=== PATIENT | female | born 1985 | race Caucasian/White ===

== ENCOUNTER 2020-06-24 09:54 | Outpatient (REF) | payer OTHER, SELFPAY ==
[2020-06-25 09:47] LABS: BV Int Neg Control Negative (Negative); BV Int Pos Control Positive (Positive)
[2020-06-25 19:02] LABS: C. trachomatis RNA TMA NOT DETECTED (NOT DETECTED); N. gonorrhoeae RNA TMA NOT DETECTED (NOT DETECTED)
== END 2020-06-24 09:55 | disposition home or self-care (01) ==
LOC: HO.LAB 09:54
PROVIDERS: PCP Internal Medicine; Visit Provider Advanced Practice Midwife
DX: N92.6 Irregular menstruation, unspecified (principal); Z20.2 Contact with and (suspected) exposure to infections with a predominantly sexual mode of transmission
CPT/HCPCS: 36415; 81025; 87480; 87491; 87510; 87591; 87660; 99212

== ENCOUNTER 2020-07-08 10:43 | Outpatient (REF) | payer OTHER, SELFPAY ==
--- NOTE | ~2020-07-08 | US_ITS ---
EXAMINATION: PELVIC ULTRASOUND CLINICAL INFORMATION: Pain COMPARISON: Previous exam October 2010 TECHNIQUE: Transabdominal and transvaginal pelvic ultrasound was performed. Transvaginal exam was performed for better visualization of the uterus and ovaries. FINDINGS: The uterus is anteverted and measures 11 x 5 x 6.7 cm in dimension. No focal uterine lesion is seen. There is an IUD in the uterus in satisfactory position. The endometrium does not appear thickened. The ovaries are normal-appearing. The right ovary measures 2.7 x 3.7 x 1.4 cm and the left ovary measures 3.4 x 2.6 x 2.2 cm. There is no fluid in the pelvis. US/US transvaginal IMPRESSION: IUD in the uterus in satisfactory position. Otherwise unremarkable exam.
--- NOTE | ~2020-07-08 | US_ITS ---
EXAMINATION: PELVIC ULTRASOUND CLINICAL INFORMATION: Pain COMPARISON: Previous exam October 2010 TECHNIQUE: Transabdominal and transvaginal pelvic ultrasound was performed. Transvaginal exam was performed for better visualization of the uterus and ovaries. FINDINGS: The uterus is anteverted and measures 11 x 5 x 6.7 cm in dimension. No focal uterine lesion is seen. There is an IUD in the uterus in satisfactory position. The endometrium does not appear thickened. The ovaries are normal-appearing. The right ovary measures 2.7 x 3.7 x 1.4 cm and the left ovary measures 3.4 x 2.6 x 2.2 cm. There is no fluid in the pelvis. US/US pelvic complete IMPRESSION: IUD in the uterus in satisfactory position. Otherwise unremarkable exam.
== END 2020-07-08 10:44 | disposition home or self-care (01) ==
LOC: HO.US 10:43
PROVIDERS: Visit Provider Advanced Practice Midwife
DX: R10.2 Pelvic and perineal pain (principal); N92.6 Irregular menstruation, unspecified
CPT/HCPCS: 76830; 76856

== ENCOUNTER → 2020-07-16 11:27 | Outpatient (BNVA) | payer OTHER, SELFPAY | PROVIDERS: PCP Internal Medicine; Visit Provider Advanced Practice Midwife ==

== ENCOUNTER 2020-07-31 08:46 | Outpatient (REF) | payer OTHER, SELFPAY ==
[2020-07-31 09:23] LABS: MANUAL DIFF FLAG NO
[2020-07-31 09:31] LABS: Basophils Absolute Auto 0.1 X10*3/uL (0.0-0.2); Basophils Percent Auto 0.9 % (0-2); Eosinophils Absolute Auto 0.2 X10*3/uL (0.0-0.4); Hematocrit 39.6 % (37-47); Hemoglobin 12.8 g/dl (12.0-16.0); Imm Gran Abs Auto 0.02 X10*3/uL (0.00-0.03); Imm Gran Pct Auto 0.3 % (0.0-0.4); Lymphocytes Absolute Auto 1.8 X10*3/uL (1.2-4.9); Lymphocytes Percent Auto 28.4 % (20-40); Mean Corpuscular HGB Conc 32.3 g/dl (31.0-35.0); Mean Corpuscular Hemoglobin 27.9 pg (27.0-33.0); Mean Corpuscular Volume 86.5 fL (80-98); Mean Platelet Volume 11.4 fL (9.4-12.3); Monocytes Absolute Auto 0.7 X10*3/uL (0.1-1.2); Monocytes Percent Auto 10.8 % (2-11); Neutrophils Absolute Auto 3.6 X10*3/uL (2.0-8.3); Neutrophils Percent Auto 56.6 % (45-73); Platelet Count 259 X10*3/uL (160-400); Red Blood Count 4.58 X10*6/uL (4.20-5.50); Red Cell Distribution Width 13.2 % (11.0-16.0); White Blood Count 6.4 X10*3/uL (4.8-10.8)
[2020-07-31 10:15] LABS: Alanine Aminotransferase 11 U/L (0-31); Albumin Level 4.2 g/dL (3.5-5.0); Alkaline Phosphatase 84 U/L (39-117); Anion Gap 13 (12-20); Aspartate Amino Transferase 16 U/L (5-31); Bilirubin Total 0.6 mg/dL (0.0-1.0); Blood Urea Nitrogen 13 mg/dL (9-16); Calcium 9.4 mg/dL (8.4-10.2); Carbon Dioxide 27 mmol/L (22-29); Chloride 104 mmol/L (96-108); Cholesterol 163 mg/dL; Estimated Glomerular Filt Rate > 60; Glucose Fasting 84 mg/dL (60-99); HDL Cholesterol 54 mg/dL; LDL Cholesterol Calculated 99 mg/dl; Potassium 4.8 mmol/L (3.3-5.1); Sodium 139 mmol/L (135-145); Total Protein 7.2 g/dL (6.5-8.0); Triglycerides 54 mg/dL
== END 2020-07-31 08:47 | disposition home or self-care (01) ==
LOC: HO.LAB 08:46
PROVIDERS: PCP Internal Medicine; Visit Provider Nurse Practitioner Family
DX: R22.1 Localized swelling, mass and lump, neck (principal)
CPT/HCPCS: 36415; 80053; 80061; 85025

== ENCOUNTER 2020-08-08 15:37 | Outpatient (REF) | payer OTHER, SELFPAY ==
--- NOTE | ~2020-08-08 | US_ITS ---
EXAMINATION: US SOFT TISSUE OF THE NECK CLINICAL INFORMATION: Localized swelling, mass and lump, neck. COMPARISON: None TECHNIQUE: Linear transducer grayscale and color Doppler examination of the left lump at area of trapezius. FINDINGS: There is a isoechoic oval mass noted in the region of the posterior neck trapezius likely within the subcutaneous soft tissues this measures 2.6 x 1.3 x 4.3 cm. There is no significant vascularity. US/US soft tiss head and/or neck IMPRESSION: Isoechoic solid mass corresponding to the area of palpable abnormality in the left posterior neck trapezial region which appears to be within the subcutaneous soft tissues. While this may reflect a lipoma, other benign and malignant masses could have a similar appearance on ultrasound. Clinical correlation is necessary to help determine the likelihood of this reflecting a lipomatous mass. CT or MRI could be utilized to further characterize the mass with respect to whether not reflects a lipomatous mass if felt clinically necessary..
== END 2020-08-08 15:38 | disposition home or self-care (01) ==
LOC: HO.US 15:37
PROVIDERS: Visit Provider Nurse Practitioner Family
DX: R22.1 Localized swelling, mass and lump, neck (principal)
CPT/HCPCS: 76536

== ENCOUNTER → 2020-08-28 08:47 | Outpatient (BNVA) | payer OTHER, SELFPAY | PROVIDERS: PCP Internal Medicine; Visit Provider Surgery | DX: D17.9 Benign lipomatous neoplasm, unspecified (principal) | CPT/HCPCS: 99202 ==

== ENCOUNTER 2020-09-30 06:43 | Day surgery (SDC) | payer OTHER, SELFPAY ==
[2020-09-24 14:00] VITALS: BMI 34.4
--- NOTE | 2020-09-29 09:10 | P.CONAN_ITS ---
Documented by User: Mary Chandler 09/29/20 09:11 HPI - Anesthesia Eval Consult details Narrative: 35yo F for Left Excision of Neck Lipoma PMFSH Active Problems Active Problems: All Active Problems (Updated 08/08/20 @ 18:56 by Martha Garcia NP) Lipoma (Acute) Lump in neck (Acute) Potential exposure to STD (Acute) Irregular menses (Acute) Past Medical History Medical History Lipoma Lump in neck Family History Family History Mother COPD (chronic obstructive pulmonary disease) Ovarian cancer Maternal Grandmother Breast cancer Social History Social History Are you a primary client care specialist to a significant other at home: No Do you presently have visiting nurse or other home services: No Alcohol intake: current Alcohol intake frequency: holidays/special occasions only Smoking Status: Never smoker Advance Directives: No Advance Directives Information Provided: No Advance Directives on File: No Recently lost weight without trying: No Eating poorly because of decreased appetite: No Nutrition Risks: No Nutritional Risk Sexual orientation: Straight/Heterosexual Meds Allergies Allergy/AdvReac Type Severity Reaction Status Date / Time No Known Allergies Allergy Unknown UNKNOWN Verified 09/30/20 06:49 Home Medications Medication Instructions Recorded Confirmed Last Taken Type copper 380 square mm intrauterine INTRAUTERINE 07/16/20 08/28/20 Unknown History device Exam Exam Date and Time: September 29, 2020 0910 Height,Weight and Vital Signs: Height 5 ft 5 in Weight 93.894 kg Assessment and Plan Assessment Anesthesia Assessment: Chart Reviewed Documented by User: Alis Rader 09/30/20 07:44 PMFSH Past Medical History Medical History Lipoma Lump in neck Family History Family History Mother COPD (chronic obstructive pulmonary disease) Ovarian cancer Maternal Grandmother Breast cancer Social History Social History Are you a primary client care specialist to a significant other at home: No Do you presently have visiting nurse or other home services: No Alcohol intake: current Alcohol intake frequency: holidays/special occasions only Smoking Status: Never smoker Advance Directives: No Advance Directives Information Provided: No Advance Directives on File: No Recently lost weight without trying: No Eating poorly because of decreased appetite: No Nutrition Risks: No Nutritional Risk Sexual orientation: Straight/Heterosexual Meds Allergies Allergy/AdvReac Type Severity Reaction Status Date / Time No Known Allergies Allergy Unknown UNKNOWN Verified 09/30/20 06:49 Home Medications Medication Instructions Recorded Confirmed Last Taken Type copper 380 square mm intrauterine INTRAUTERINE 07/16/20 08/28/20 Unknown History device Exam Airway Mallampati Class: I TM Dist: >3cm Neck ROM: Full Loose/Missing/Broken Teeth: No Lungs: RRR Other: CTA Assessment and Plan Assessment Anesthesia Assessment: Anesthesia Plan Discussed and Chart Reviewed Final Anesthetic Review NPO: Yes ASA Class: I Final Preanesthetic Review: Meds/Allgs Chart Reviewed, Consent Obtained/Reviewed and Anes Risks/Benef Reviewed Patient Risk: Low Procedure Risk: Low Anesthetic Plan Anesthetic Plan: GA Disposition: Standard PACU
[2020-09-30 06:50] VITALS: BP 115/61; PULSE 63; RESP 16; TEMP 37.1; O2SAT 97
[2020-09-30 07:05] LABS: UPreg QC Valid YES; Urine Pregnancy NEGATIVE (NEGATIVE)
[2020-09-30] MEDS: Lactated Ringers 1,000 ML 100 ML IVCONT (07:12)
--- NOTE | 2020-09-30 07:30 | MHC.SHP ---
Pre-Procedural Eval Section B Chief Complaint: Lipoma Allergies: Allergies Allergy/AdvReac Type Severity Reaction Status Date / Time No Known Allergies Allergy Unknown UNKNOWN Verified 09/30/20 06:49 Plan I have reviewed the history and physical and performed a pertinent physical examination on my patient. No changes have occurred unless specified.
--- NOTE | 2020-09-30 08:08 | W.PM.OPN ---
Operative Note Operative Note Date of Service: 09/30/20 Narrative: Preop diagnosis: lipoma left neck Postop diagnosis: same Procedure: excision of lipoma left neck under anesthesia Surgeon: Dany Shearer MD Asst: none The patient is a 35F with a lipomatous mass on the left neck, laterally just anterior to the margin of the trapezius muscle. This measured about 4 cm in widest dimension. She wanted this excised under anesthesia., She was aware of the risks, benefits and alternatives and had given consent. She was brought to the OR and placed in left lateral decub position under general anesthesia via LMA. The area of the lipoma was prepped and draped in the usual sterile fashion. A surgical timeout was done. The patient received Cefazolin 2g IV preop. Lidocaine 1% was used for local anesthesia as well. An incision was made on the skin overlying the lipoma using a blade 15. this was carried down through the full thickness of the skin and subcutaneous layer with electrocautery until the lipoma was visualzied. I then sharply dissected the lipoma off of the rest of the subcutaneous layer with electrocautery as well as Metzenbaum scissors until the lipoma was compeltely , and this was delivered and sent as a specimen. I used electocautery to ensure hemostasis on the excision site. I closed the subcutaneous layer with Dexon 3-0 interrupted sutures. Skin closure was achieved with Dexon 4-0 subcuticular running sutures. Steristrips and dressings were applied. The area was infiltrated with Marcaine .5% for postop analgesia and the procedure was completed. The patient tolerated the proceudre well. Initial and final counts of sponges and instruments were correct. EBL was about 2 cc. The patient was extubated without difficulty and transferred to the recovery room with stable VS.
[2020-09-30 08:12] VITALS: BP 111/69; PULSE 60; RESP 16; TEMP 36.1; O2SAT 100
[2020-09-30 08:17] VITALS: BP 112/65; PULSE 58; RESP 16; O2SAT 100
--- NOTE | 2020-09-30 08:18 | PM.OP ---
Brief Operative Note Date of Service: 09/30/20 Pre-op diagnosis: lipoma left neck Post-op diagnosis: same Procedure: exc of lipoma left neck Surgeon: Dany Shearer MD Anesthesia: GLMA Estimated blood loss (mL): 2 Pathology: other (lipoma) Condition: stable Disposition: PACU
[2020-09-30 08:22] VITALS: BP 110/59; PULSE 57; RESP 16; O2SAT 100
[2020-09-30 08:27] VITALS: BP 107/64; PULSE 61; RESP 16; O2SAT 100
[2020-09-30 08:42] VITALS: BP 120/79; PULSE 64; RESP 16; TEMP 36.1; O2SAT 100
== END 2020-09-30 09:00 | disposition home or self-care (01) ==
PROVIDERS: Nurse Practitioner; PCP Internal Medicine; Visit Provider Surgery
PROC: (CPT 21552; principal; 2020-09-30 08:40)
DX: D17.0 Benign lipomatous neoplasm of skin and subcutaneous tissue of head, face and neck (principal)
CPT/HCPCS: 21552; 81025; 88304; J0690; J1100; J1885; J2250; J2405; J3010

== ENCOUNTER → 2020-10-13 09:18 | Outpatient (BNVA) | payer OTHER, SELFPAY | PROVIDERS: PCP Internal Medicine; Visit Provider Surgery | DX: Z48.817 Encounter for surgical aftercare following surgery on the skin and subcutaneous tissue (principal); Z87.2 Personal history of diseases of the skin and subcutaneous tissue | CPT/HCPCS: 99212 ==

== ENCOUNTER 2022-05-03 06:23 | Emergency (ER) | payer OTHER, SELFPAY ==
--- NOTE | ~2022-05-03 | CT_ITS ---
EXAMINATION: CT FACIAL BONES WITH CONTRAST CLINICAL INFORMATION: Right facial swelling. Rule out dental abscess. COMPARISON: None TECHNIQUE: Axial 3 mm thin and reformatted 1.5 mm thin sagittal and coronal images of facial bones were obtained without contrast. This CT examination was performed using dose optimization techniques as appropriate, variously including the following: *Automated exposure control *Adjustment of mA and/or kV according to patient size (this includes techniques or standardized protocols for targeted exams where dose is matched to indication/reason for exam; i.e. extremities or head) *Use of iterative reconstruction technique DLP: 338 mGy-cm FINDINGS: No intracranial abnormality seen. There is normal symmetry of bilateral optic globes, optic nerve and intraorbital soft tissues. There is moderate opacification of right maxillary sinus. Rest the paranasal sinuses are well-aerated. There is obstruction of right ostiomeatal complex from mucoperiosteal thickening. The left ostiomeatal complex and frontoethmoidal recesses are widely patent. There is normal patency of nasopharyngeal and nasal cavity airway is. Incidental finding of lui bullosa bilateral middle turbinates. There is a small right apical cyst in the right upper the molar molar, right lower second molar tooth. There is interval 2-D change involving the last upper molar tooth, right upper premolar tooth and left lower premolar tooth. There is right gingival soft tissue swelling extending to the right facial soft tissues but no visible abscess visualized. The left gingival space and bilateral buccal spaces are normal. There is prominence of right buccal fat likely secondary to edema. No abnormal size neck lymph nodes seen. Bilateral TM joints are symmetrical and normal. CT/CT facial bones w IV con IMPRESSION: 1. There is right gingival and right facial soft tissue swelling but no visible abscess seen. 2. There is a right apical cyst involving the right upper and right lower second molar teeth. 3. There is right maxillary sinus inflammatory changes with obstruction of right ostiomeatal complex from mucoperiosteal thickening. 4. The left ostiomeatal complex and frontoethmoidal recesses are widely patent.
[2022-05-03 06:38] VITALS: BP 122/78; PULSE 98; RESP 20; TEMP 37.1; O2SAT 98; BMI 33.3
[2022-05-03 06:54] LABS: Hematocrit 38.5 % (37.0-47.0); Hemoglobin 12.6 g/dl (12.0-16.0); Mean Corpuscular HGB Conc 32.7 g/dl (31.0-35.0); Mean Corpuscular Hemoglobin 27.3 pg (27.0-33.0); Mean Corpuscular Volume 83.5 fL (80.0-98.0); Mean Platelet Volume 11.4 fL (9.4-12.3); Platelet Count 245 X10*3/uL (160-400); Red Blood Count 4.61 X10*6/uL (4.20-5.50); Red Cell Distribution Width 13.1 % (11.0-16.0); White Blood Count 11.3 X10*3/uL (4.8-10.8)
[2022-05-03 07:08] LABS: Alanine Aminotransferase 11 U/L (0-31); Alkaline Phosphatase 84 U/L (39-117); Anion Gap 10 (12-20); Aspartate Amino Transferase 12 U/L (5-31); Bilirubin Total 1.5 mg/dL (0.0-1.0); Blood Urea Nitrogen 9 mg/dL (9-16); Calcium 9.1 mg/dL (8.4-10.2); Carbon Dioxide 27 mmol/L (22-29); Chloride 105 mmol/L (96-108); Creatinine Clr Calc Pharmacy 109.8; Estimated Glomerular Filt Rate > 60; Glucose Random 109 mg/dL (60-115); Sodium 138 mmol/L (135-145)
--- NOTE | 2022-05-03 07:28 | ED.DENTAL ---
HPI - Dental/Oral General Chief complaint: Dental/Oral Stated complaint: Swollen face, flu like symptoms Time Seen by Provider: 05/03/22 07:23 Source: patient Mode of arrival: ambulatory History of Present Illness HPI Narrative: 37-year-old female with no significant past medical history presents to the emergency department today complaining of swollen right face. Patient states she had a toothache yesterday, and woke up this morning with the right side of her face swollen. There is mild pain, and no drainage. The patient denies any fevers or shaking chills. Onset (ago): day(s) (1) Duration: constant Severity: moderate Context: history of dental caries Related Data Home Medications Medication Instructions Recorded Confirmed copper 380 square mm intrauterine intrauterine 07/16/20 08/28/20 device (ParaGard T 380A) Previous Rx's Medication Instructions Recorded ibuprofen 400 mg tablet 400 mg PO Q8H PRN pain 10 days #20 07/29/20 tabs tramadol 50 mg tablet 50 mg PO Q6H PRN pain #15 tabs 09/30/20 clindamycin HCl 150 mg capsule 150 mg PO Q8H 10 days #30 caps 05/03/22 oxycodone-acetaminophen 5 mg-325 1 - 2 tab PO Q4H PRN pain #10 tabs 05/03/22 mg tablet (Percocet) Allergies Allergy/AdvReac Type Severity Reaction Status Date / Time No Known Allergies Allergy Unknown UNKNOWN Verified 10/13/20 09:27 Review of Systems Review of Systems: Constitutional:??J Constitutional: De nies chills, Denie s fatigue and head ache(s) ENT:?? No headache(s), no sore throat Cardiovascular:??J Cardiovascular: De nies chest pain an d Denies dyspnea Respiratory:?? Respiratory: Denie s cough and Denies wheezing PMFSH Past Medical History Attestation statement: The following information was validated with the patient. Medical History Lipoma Lump in neck Surgical History History of excision of mass Family History Family History Mother COPD (chronic obstructive pulmonary disease) Ovarian cancer Maternal Grandmother Breast cancer Social History Social History Are you a primary healthcare marketer to a significant other at home: No Do you presently have visiting nurse or other home services: No Alcohol intake: current Alcohol intake frequency: holidays/special occasions only Smoked in Last 30 Days: No Advance Directives: No Advance Directives Information Provided: No Patient : No Sexual orientation: Straight/Heterosexual Physical Exam Vital Signs: Vital Signs: Last Vital Signs Temp 98.2 F 05/03/22 14:04 Pulse 71 05/03/22 14:04 Resp 12 05/03/22 14:04 BP 105/57 L 05/03/22 14:04 Pulse Ox 100 05/03/22 14:04 O2 Del Method 05/03/22 14:04 BMI result Body Mass Index 33.3 Vital signs as noted, no abnormalities Const: General: cooperative, comfortable and acute distress mild Nutritional Appearance: average body habitus Orientation/consciousness: patient oriented x3 HEENT: Head: Yes normal to inspection, Yes normocephalic and Yes atraumatic Ears: external ears normal General nose exam: Normal external nose present Face and sinus: Yes edema Face images: 1. Swelling Mouth: Normal oral and palatal mucosa present (Patient having difficulty opening the mouth for evaluation) Resp: Effort & Inspection: normal respiratory effort and no cough Skin: General skin exam: no rashes or lesions noted, no mottling and no pallor Neuro: General: patient oriented x3 and CN's II-XI intact bilaterally Medications Administered Discontinued Medications Generic Name Dose Route Start Last Admin Trade Name Freq PRN Reason Stop Dose Admin Acetaminophen 650 mg 05/03/22 11:13 05/03/22 11:20 Acetaminophen 325 Mg Tablet PO 05/03/22 11:14 650 mg ONCE ONE Administration Clindamycin Phosphate 600 mg in 50 mls @ 100 mls/hr 05/03/22 07:31 05/03/22 08:39 Cleocin IV 05/03/22 08:00 Infused ONCE ONE Infusion Iohexol 85 ml 05/03/22 12:58 05/03/22 12:59 Iohexol 350 Mg/Ml 100 Ml Infus..Btl IV 05/03/22 12:59 85 ml ONCE ONE Administration MDM - Dental/Oral MDM Narrative Medical decision making narrative: 37-year-old female presenting with swollen right side of the face, secondary to dental caries. The patient received IV clindamycin, and underwent a CT scan of the face which did not show any acute abscess, but inflammatory changes as documented below. The patient will be discharged home on antibiotics with follow-up to her primary care doctor/dentist. May require follow-up with Oral maxillofacial surgery Differential Diagnosis Differential diagnosis: Likely dental caries and dental abscess Medical Records Attestation: I reviewed the patient's medical records. Lab Data Attestation: I reviewed the patient's lab results. Result diagrams: 05/03/22 06:48 05/03/22 06:48 Labs: Lab Results 05/03/22 05/03/22 05/03/22 Range/Units 06:48 06:48 06:51 WBC 11.3 H (4.8-10.8) X10*3/uL RBC 4.61 (4.20-5.50) X10*6/uL Hgb 12.6 (12.0-16.0) g/dl Hct 38.5 (37.0-47.0) % MCV 83.5 (80.0-98.0) fL MCH 27.3 (27.0-33.0) pg MCHC 32.7 (31.0-35.0) g/dl RDW 13.1 (11.0-16.0) % Plt Count 245 (160-400) X10*3/uL MPV 11.4 (9.4-12.3) fL Absolute Nucleated RBC 0.000 (0.0-0.012) X10*3/uL Nucleated RBC % (auto) 0.0 (0.0-0.2) /100WBC Sodium 138 (135-145) mmol/L Potassium 4.0 (3.3-5.1) mmol/L Chloride 105 (96-108) mmol/L Carbon Dioxide 27 (22-29) mmol/L Anion Gap 10 L (12-20) BUN 9 (9-16) mg/dL Creatinine 0.78 (0.5-1.4) mg/dL Estim Creat Clear Calc 109.8 Estimated GFR > 60 Random Glucose 109 (60-115) mg/dL Calcium 9.1 (8.4-10.2) mg/dL Total Bilirubin 1.5 H (0.0-1.0) mg/dL AST 12 (5-31) U/L ALT 11 (0-31) U/L Alkaline Phosphatase 84 (39-117) U/L Total Protein 7.0 (6.5-8.0) g/dL Albumin 4.0 (3.5-5.0) g/dL Influenza Type A (PCR) NEGATIVE (Negative) Influenza Type B (PCR) NEGATIVE (Negative) RSV RNA Qual (PCR) NEGATIVE (Negative) SARS-CoV-2 RNA (RT-PCR) NEGATIVE (Negative) Imaging Data CT face: Radiologist's impression: IMPRESSION: 1.? There is right gingival and right facial soft tissue swelling but no visible abscess seen. 2.? There is a right apical cyst involving the right upper and right lower second molar teeth. 3.? There is right maxillary sinus inflammatory changes with obstruction of right ostiomeatal complex from mucoperiosteal thickening. 4.? The left ostiomeatal complex and frontoethmoidal recesses are widely patent Discharge Plan Discharge Clinical Impression: Dental caries Patient Disposition: Home, Self-Care Additional Instructions: Follow-up with your primary care doctor tomorrow. If you are not improving, you may need referral to Oral maxillofacial surgery, which your primary care doctor can do for you. Take the antibiotics as prescribed. You also given some pain medication and a prescription to use as needed. Elevation of the head of your bed may help, as might warm compresses applied to the area Return to the emergency department if you feel your having an emergency, are having trouble breathing, or can not swallow Prescriptions: New clindamycin HCl 150 mg capsule 150 mg PO Q8H 10 Days Qty: 30 0RF oxycodone-acetaminophen [Percocet] 5-325 mg tablet 1 - 2 tab PO Q4H PRN (Reason: pain) Qty: 10 0RF Rx Instructions: Partial Fill upon patient request. No Action tramadol 50 mg tablet 50 mg PO Q6H PRN (Reason: pain) Qty: 15 0RF ibuprofen 400 mg tablet 400 mg PO Q8H PRN (Reason: pain) 10 Days Qty: 20 0RF ParaGard T 380A 380 square mm intrauterine device intrauterine
[2022-05-03 07:37] LABS: Influenza A PCR NEGATIVE (Negative); Influenza B PCR NEGATIVE (Negative); Resp Syncy Virus RNA Qual PCR NEGATIVE (Negative); SARS COV2 PCR INHOUSE NEGATIVE (Negative)
[2022-05-03 07:43] VITALS: BP 118/71; PULSE 77; RESP 12; TEMP 36.8; O2SAT 97
[2022-05-03] MEDS: Clindamycin Phosphate/D5W 600 MG/50 ML PIGGYBACK 100 MG IV (07:53)
--- NOTE | 2022-05-03 08:00 | PC.NURSE ---
per provider . Dr Sherine Lynch . no blood cultures obtained prior to antibiotics administered.
--- NOTE | 2022-05-03 08:01 | PC.NURSE ---
patent a/ox4 . pearrla . right side of face swollen , no redness or warmth noted by this RN . patient reports tooth pain in right side of mouth applied oragel on Tuesday night and woke up with swelling of face this morning . airway intact .breathing even and unlabored . lungs clear throughout . skin pink warm and dry . abdomen soft not tender . positive bowel sounds in all four quadrants . IV placed in left A .C . Clindomycin started as ordered . patient aware of plan of care .
[2022-05-03] MEDS: Acetaminophen 325 MG TABLET 650 MG PO (11:20)
[2022-05-03] MEDS: iohexoL 350 MG/ML 100 ML INFUS..BTL 85 ML IV (12:59)
[2022-05-03 14:04] VITALS: BP 105/57; PULSE 71; RESP 12; TEMP 36.8; O2SAT 100
--- NOTE | 2022-05-03 15:48 | PC.NURSE ---
Patient a/ox4 . Went over discharge instructions as ordered by provider . Patient to follow up with oral max facial . Patient educated on completion of antibitics as prescribed . Patient to return of symptoms worsen . No questions at this time .
== END 2022-05-03 15:50 | disposition home or self-care (01) ==
PROVIDERS: Emergency Provider Emergency Medicine
DX: K02.9 Dental caries, unspecified (principal); K04.7 Periapical abscess without sinus; Z20.822 Contact with and (suspected) exposure to COVID-19; Z79.899 Other long term (current) drug therapy
CPT/HCPCS: 0241U; 36415; 70487; 80053; 85027; 96365; 99284; Q9967

== ENCOUNTER 2023-05-10 09:17 | Emergency (ER) | payer OTHER, SELFPAY ==
[2023-05-10 09:38] VITALS: BP 122/79; PULSE 77; RESP 18; TEMP 36.4; O2SAT 99; BMI 33.1
[2023-05-10 09:57] LABS: MANUAL DIFF FLAG NO
[2023-05-10 09:58] LABS: Basophils Percent Auto 0.7 % (0-2); Eosinophils Absolute Auto 0.1 X10*3/uL (0.0-0.4); Eosinophils Percent Auto 3.1 % (0-4); Hemoglobin 11.2 g/dl (12.0-16.0); Imm Gran Abs Auto 0.02 X10*3/uL (0.00-0.03); Imm Gran Pct Auto 0.5 % (0.0-0.4); Lymphocytes Absolute Auto 1.3 X10*3/uL (1.2-4.9); Lymphocytes Percent Auto 30.6 % (20-40); Mean Corpuscular Hemoglobin 26.8 pg (27.0-33.0); Mean Corpuscular Volume 83.7 fL (80.0-98.0); Monocytes Absolute Auto 0.5 X10*3/uL (0.1-1.2); Monocytes Percent Auto 12.2 % (2-11); Neutrophils Absolute Auto 2.3 x10*3/uL (2.0-8.3); Neutrophils Percent Auto 52.9 % (45-73); Platelet Count 247 X10*3/uL (160-400); Red Blood Count 4.18 X10*6/uL (4.20-5.50); Red Cell Distribution Width 13.7 % (11.0-16.0); White Blood Count 4.3 X10*3/uL (4.8-10.8)
[2023-05-10 09:59] LABS: Appearance Urine Clear; Color Urine Yellow; Glucose Urine UA Negative (Negative); Leukocyte Esterase Urine Negative (Negative); Nitrite Urine Negative (Negative); UMIC TRIGGER UACC YES; Urine Blood Moderate (2+) (Negative); Urine Ketones Negative (Negative); Urine Protein Negative (Neg-Trace)
[2023-05-10 10:11] LABS: Alanine Aminotransferase 10 U/L (0-31); Albumin Level 4.1 g/dL (3.5-5.0); Alkaline Phosphatase 60 U/L (39-117); Anion Gap 8 (12-20); Aspartate Amino Transferase 17 U/L (5-31); Bilirubin Total 0.5 mg/dL (0.0-1.0); Blood Urea Nitrogen 11 mg/dL (9-16); Calcium 9.4 mg/dL (8.4-10.2); Carbon Dioxide 27 mmol/L (22-29); Chloride 108 mmol/L (96-108); Creatinine Clr Calc Pharmacy 103.4; Estimated Glomerular Filt Rate > 60; Glucose Random 84 mg/dL (60-115); Potassium 4.3 mmol/L (3.3-5.1); Sodium 139 mmol/L (135-145); Total Protein 7.2 g/dL (6.5-8.0)
[2023-05-10 10:41] LABS: Bacteria Urine None Seen (None Seen); Hyaline Casts Urine 0-2 /LPF (0-2); Squamous Epithelial Cell Urine 0-2 /HPF (0-2); WBC Urine 0-5 /HPF (0-5)
[2023-05-10 13:06] LABS: Iron 421 mcg/dL (30-160); Percent Iron Saturation 94 % (15-50); Total Iron Binding Capacity 446 mcg/dL (228-428); Unsaturated Iron Binding < 25 ug/dL
[2023-05-10 13:19] LABS: Ferritin 6 ng/mL (10-122)
[2023-05-10 14:50] VITALS: BP 123/72; PULSE 73; RESP 15; TEMP 36.6; O2SAT 99
--- NOTE | 2023-05-10 15:20 | ED.GENADULT ---
HPI - General Adult General Chief complaint: Recheck/Abnormal Lab/Rx Stated complaint: Low iron - sent by PCP Time Seen by Provider: 05/10/23 15:08 Source: patient Mode of arrival: ambulatory Limitations: no limitations History of Present Illness HPI narrative: 38 year old female with no significant pmhx presents to the ED today for evaluation of low iron levels. She states that she has tried to donate plasma last week however was denied due to low iron levels. States that they have been reading around the 30s. Someone at the blood donation center recommended she come to the emergency department for evaluation as she is unable to get in with her PCP until next year. no complaints at this time. Denies dizziness, fatigue, headache, dyspnea on exertion, shortness of breath, nausea/vomiting, abdominal pain, dysuria, hematuria. States that she takes iron supplementation daily. Denies blood transfusions. Currently on menstrual period. denies heavy menses. Denies history of decreased or elevated iron levels. Related Data Home Medications Medication Instructions Recorded Confirmed copper 380 square mm intrauterine intrauterine 07/16/20 08/28/20 device (ParaGard T 380A) Previous Rx's Medication Instructions Recorded ibuprofen 400 mg tablet 400 mg PO Q8H PRN pain 10 days #20 07/29/20 tabs tramadol 50 mg tablet 50 mg PO Q6H PRN pain #15 tabs 09/30/20 clindamycin HCl 150 mg capsule 150 mg PO Q8H 10 days #30 caps 05/03/22 oxycodone-acetaminophen 5 mg-325 1 - 2 tab PO Q4H PRN pain #10 tabs 05/03/22 mg tablet (Percocet) Allergies Allergy/AdvReac Type Severity Reaction Status Date / Time No Known Allergies Allergy Unknown UNKNOWN Verified 10/13/20 09:27 Review of Systems Review of Systems: Constitutional: No fever, chills, fatigue, night sweats, weight changes ENT/Mouth: No ear pain, hearing loss, nasal congestion, sinus pain, rhinorrhea, sore throat Eyes: No eye pain, swelling, redness, vision changes, discharge Cardio: No chest pain, palpitations, VOSS, orthopnea, peripheral edema Pulm: No SOB, cough, sputum, wheezing, dyspnea, hemoptysis GI: No nausea, vomiting, hematemesis, abdominal pain, diarrhea, constipation, hematochezia, melena : No irregular bleeding, dysuria, frequency, urgency, hesitancy, hematuria, flank pain, urinary flow changes, urinary incontinence or retention MSK: No back pain, neck pain, joint pain, myalgias Skin: No lesions, rashes Neuro: No weakness, numbness, paresthesias, LOC, dizziness, headache All other systems reviewed and are negative. [facility] Past Medical History Attestation statement: The following information was validated with the patient. Source: old records reviewed and nursing notes reviewed Medical History Lipoma Lump in neck Surgical History History of excision of mass Family History Family History Mother COPD (chronic obstructive pulmonary disease) Ovarian cancer Maternal Grandmother Breast cancer Social History Social History Are you a primary care transport nurse to a significant other at home: No Do you presently have visiting nurse or other home services: No Alcohol intake: current Alcohol intake frequency: holidays/special occasions only Advance Directives: No Advance Directives Information Provided: Yes Sexual orientation: Straight/Heterosexual Physical Exam ED Vital Signs: Vital Signs - 24 hr 05/10/23 14:50 Temperature 97.8 F Pulse Rate 73 Respiratory Rate 15 Blood Pressure 123/72 Pulse Oximetry 99 Oxygen Delivery Method Room Air BMI result Body Mass Index 33.1 vss Const General: cooperative, healthy appearing, comfortable, no acute distress, alert and awake Orientation/consciousness: patient oriented x3 Limitations: no limitations [facility] Head: Yes normal to inspection Ears: hearing grossly normal bilaterally General nose exam: Normal external nose present Eyes General: appearance normal, both eyes and all related structures Conjunctivae: conjunctivae normal Sclerae: sclerae normal Pupils: Equal, round and reactive pupils present Neck Neck: Yes normal visual inspection and Yes full ROM Resp Effort & Inspection: normal respiratory effort Auscultation: clear to auscultation bilaterally Cardio Rate: regular rate Rhythm: regular rhythm Peripheral pulses: radial pulses present GI Inspection: Yes normal to inspection Palpation (GI): Soft to palpation, nontender, no guarding and hepatosplenomegaly present Skin General skin exam: no rashes or lesions noted Hair: normal Nails: normal Neuro General: patient oriented x3, gait normal and moves all extremities Cranial nerves: Yes Equal, round and reactive pupils present Extrem General: Yes normal to inspection, Yes full ROM and Yes capillary refill normal Course Course Course Narrative: CBC showing anemia when compared to priors. No leukocytosis. Slight elevation in monocytes which may suggest blood disorder. Elevated iron and TIBC, decreased ferritin. Normal liver function. Normal kidney function. This may indicate hemochromocytosis. Urine without infection, shows moderate amount of blood and rbcs secondary to patient?s current menstrual period. Likely unrelated to patient?s concern. > discussed findings with my colleague, Dorita PAULINO. As patient is stable and asymptomatic, she may be discharged home with hematology follow up as she may require therapeutic phlebotomy. Referral will be provided. > informed patient of results and plan. She is in agreement.?Patient has remained stable throughout ED visit today. Discussed strict return precautions. All questions answered at this time. Patient is agreeable with disposition and stable for discharge. Medical Decision Making Medical Decision Making [facility] Narrative: 38 year old female with no significant pmhx presents to the ED today for evaluation of low iron levels. Vital signs stable. she is nontoxic appearing, in NAD. Normal skin color, warm. Cap refill <2 sec throughout. RRR. Lungs cta b/l. abd soft, nd/nt, no rebound or guarding. no hepatosplenomegaly. Clinical concern for iron deficiency anemia, PUD, heavy menstruation. Unlikely lead poisioning, anemia of chronic disease, hemolysis, ckd. Plan for labs, iron panel, re-katie. Differential Diagnosis Differential Diagnoses: The differential diagnosis associated with the presentation includes as above Admission/Observation not indicated Lab Data [facility] Lab Attestation statement: I reviewed the patient's lab results. as above 05/10/23 09:53 05/10/23 09:53 Labs: Lab Results 05/10/23 Range/Units 09:53 WBC 4.3 L (4.8-10.8) X10*3/uL RBC 4.18 L (4.20-5.50) X10*6/uL Hgb 11.2 L (12.0-16.0) g/dl Hct 35.0 L (37.0-47.0) % MCV 83.7 (80.0-98.0) fL MCH 26.8 L (27.0-33.0) pg MCHC 32.0 (31.0-35.0) g/dl RDW 13.7 (11.0-16.0) % Plt Count 247 (160-400) X10*3/uL MPV 11.0 (9.4-12.3) fL Immature Gran % (Auto) 0.5 H (0.0-0.4) % Neut % (Auto) 52.9 (45-73) % Lymph % (Auto) 30.6 (20-40) % Door % (Auto) 12.2 H (2-11) % Eos % (Auto) 3.1 (0-4) % Baso % (Auto) 0.7 (0-2) % Lymph # (Auto) 1.3 (1.2-4.9) X10*3/uL Door # (Auto) 0.5 (0.1-1.2) X10*3/uL Eos # (Auto) 0.1 (0.0-0.4) X10*3/uL Baso # (Auto) 0.0 (0.0-0.2) X10*3/uL Abs Immat Gran (auto) 0.02 (0.00-0.03) X10*3/uL Absolute Neuts (auto) 2.3 (2.0-8.3) x10*3/uL Absolute Nucleated RBC 0.000 (0.0-0.012) X10*3/uL Nucleated RBC % (auto) 0.0 (0.0-0.2) /100WBC Sodium 139 (135-145) mmol/L Potassium 4.3 (3.3-5.1) mmol/L Chloride 108 (96-108) mmol/L Carbon Dioxide 27 (22-29) mmol/L Anion Gap 8 L (12-20) BUN 11 (9-16) mg/dL Creatinine 0.79 (0.5-1.4) mg/dL Estim Creat Clear Calc 103.4 Estimated GFR > 60 Random Glucose 84 (60-115) mg/dL Calcium 9.4 (8.4-10.2) mg/dL Iron 421 H (30-160) mcg/dL TIBC 446 H (228-428) mcg/dL % Saturation 94 H (15-50) % Unsat Iron Binding < 25 ug/dL Ferritin 6 L (10-122) ng/mL Total Bilirubin 0.5 (0.0-1.0) mg/dL AST 17 (5-31) U/L ALT 10 (0-31) U/L Alkaline Phosphatase 60 (39-117) U/L Total Protein 7.2 (6.5-8.0) g/dL Albumin 4.1 (3.5-5.0) g/dL Urine Color Yellow Urine Appearance Clear Urine pH 6.0 (5.0-9.0) Ur Specific [place] 1.020 (1.005-1.025) Urine Protein Negative (Neg-Trace) mg/dL Urine Glucose (UA) Negative (Negative) mg/dL Urine Ketones Negative (Negative) mg/dL Urine Blood Moderate (2+) H (Negative) Urine Nitrite Negative (Negative) Ur Leukocyte Esterase Negative (Negative) Urine RBC 6-10 H (0-2) /HPF Urine WBC 0-5 (0-5) /HPF Ur Squamous Epith Cells 0-2 (0-2) /HPF Urine Bacteria None Seen (None Seen) Hyaline Casts 0-2 (0-2) /LPF Blood Type O Positive Antibody Screen NEGATIVE External Record Review External record reviewed: Inpatient record Critical Care Time Critical Care Time Critical Care Time: No Discharge Plan Discharge Clinical Impression: Hemochromatosis Patient Disposition: Home, Self-Care Instructions: Hemochromatosis (DC), Therapeutic Phlebotomy (DC) Additional Instructions: Your labs revealed mild anemia with elevated iron levels to the 400s. Due to elevated iron levels, please stop taking your iron supplementation at home. You need to be evaluated by a environmental services floor tech. A referral has been provided to you. Call them to make an appointment. They will not call you. If you develop symptoms such as fatigue, dizziness, nausea/vomiting or abdominal plain please return to the emergency department. In the case of an emergency call 911. Prescriptions: No Action tramadol 50 mg tablet 50 mg PO Q6H PRN (Reason: pain) Qty: 15 0RF clindamycin HCl 150 mg capsule 150 mg PO Q8H 10 Days Qty: 30 0RF oxycodone-acetaminophen [Percocet] 5-325 mg tablet 1 - 2 tab PO Q4H PRN (Reason: pain) Qty: 10 0RF Rx Instructions: Partial Fill upon patient request. ibuprofen 400 mg tablet 400 mg PO Q8H PRN (Reason: pain) 10 Days Qty: 20 0RF ParaGard T 380A 380 square mm intrauterine device intrauterine Referrals: Angie Blunt MD [Physician] - 3 days (Hemochromatosis) Stand Alone Forms: Work/School Release Interventions: ED Discharge Assessment Last Done: 05/10/23 15:41 Discharge Date/Time: 05/10/23 15:42
== END 2023-05-10 15:42 | disposition home or self-care (01) ==
PROVIDERS: Physician Assistant; Emergency Provider Emergency Medicine Emergency Medical Services
DX: E83.119 Hemochromatosis, unspecified (principal); R79.89 Other specified abnormal findings of blood chemistry; Z79.899 Other long term (current) drug therapy
CPT/HCPCS: 36415; 80053; 81001; 81003; 82728; 83540; 85025; 86850; 86900; 86901; 99283

== ENCOUNTER → 2023-05-27 14:40 | Outpatient (BNV) | payer OTHER, SELFPAY | PROVIDERS: Visit Provider Internal Medicine | DX: D64.9 Anemia, unspecified (principal) | CPT/HCPCS: 99203 ==

== ENCOUNTER 2023-09-06 09:56 | Outpatient (AMB) | payer OTHER, SELFPAY ==
[2023-09-06 10:07] VITALS: BP 124/80; PULSE 82; O2SAT 98; BMI 34.3
--- NOTE | 2023-09-06 10:07 | MHC.PC.OV ---
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 Noted Hematology-Oncology evaluation for anemia with iron deficiency anemia and since the patient was taking iron had an elevated ferritin not hemochromatosis. has heavy bleeding and does seen Word Processing Supervisor [place] LMP end of July 7-14 days, end of june 7-14 days. sexually active [facility] Medical History Lipoma Lump in neck Surgical History History of excision of mass Family History (Updated 09/06/23 @ 10:50 by Shanell Shirley MD) Mother COPD (chronic obstructive pulmonary disease) Ovarian cancer Maternal Grandmother Breast cancer Sister Seizure Sister MSG (monosodium glutamate) intolerance Son No problems noted. Son No problems noted. Son No problems noted. 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 1. Little interest or pleasure in doing things: not at all 2. Feeling down, depressed, or hopeless: not at all 3. Trouble falling or staying asleep, or sleeping too much: not at all 4. Feeling tired or having little energy: not at all 5. Poor appetite or overeating: not at all 6. Feeling bad about yourself - or that you are a failure or have let yourself or your family down: not at all 7. Trouble concentrating on things, such as reading the newspaper or watching television: not at all 8. Moving or speaking so slowly that other people could have noticed. Or the opposite - being so fidgety or restless that you have been moving around a lot more than usual: not at all 9. Thoughts that you would be better off or of hurting yourself in some way: not at all Total score: 0 Depression Screening Interpretation: Negative Depression Screening Done: Yes Source: Developed by Drs. Devaughn Aguayo, Sully Moreira, Mariusz Schwab and colleagues, with an educational delia from [employer]. Thrive Questionnaire Date Thrive assessed: 09/06/23 I am a: Patient What is your living situation today?: I have a steady place to live Within the past 12 months, did the food you bought not last and you didn't have the money to get more?: Sometimes True Within the past 12 months, did you worry whether your food would run out before you got money to buy more?: Sometimes True Do you have trouble paying for medicines?: No Do you have trouble getting transportation to medical appointments?: No Do you have trouble paying your heating and electricity bill?: No Do you have trouble taking care of your child, family member or friend?: No Do you have trouble with day-to-day activities such as bathing, preparing meals, shopping, managing finances, etc.?: No Are you currently unemployed and looking for a job?: No Are you interested in more education?: No Please select the resources that you would like help with: Food and Utilities Currently or been in a relationship where the following occur: no concerns reported THRIVE Score: 2 AUDIT C Alcohol Use Questionnaire (AUDIT-C) 1. How often do you have a drink containing alcohol?: Monthly or less 2. How many drinks containing alcohol do you have on a typical day when you are drinking?: 1 or 2 3. How often do you have six or more drinks on one occasion?: Never Total Score: 1 GEMMA-7 AMB Questionnaire GEMMA-7 Date GEMMA - 7 assessed: 09/06/23 Feeling nervous, anxious, or on edge: 0 = Not at all Not being able to stop or control worryin = Not at all Worrying too much about different things: 0 = Not at all Trouble relaxin = Not at all Being so restless that it is hard to sit still: 0 = Not at all Becoming easily annoyed or irritable: 0 = Not at all Feeling afraid as if something awful might happen: 0 = Not at all Total GEMMA-7 score (0-4 normal; 5-9 mild; 10-14 moderate; 15-21 severe): 0 Source: Developed by Drs. Devaughn Aguayo, Sully Moreira, Mariusz Schwab and colleagues, with an educational delia from [employer]. Physical exam (Primary Care) Vital Signs: Last Vital Signs Pulse 82 09/06/23 10:07 BP 124/80 09/06/23 10:07 Pulse Ox 98 09/06/23 10:07 Oxygen Delivery Method Room Air 09/06/23 10:07 BMI result Body Mass Index 34.3 Tobacco/Smoking Status: Tobacco use Status Tobacco use date assessed 09/06/23 09/06/23 10:10 Patient Tobacco Use Status Never used Tobacco 09/06/23 10:10 e-Cigarette/Vaping Use Never Used 09/06/23 10:10 PHQ-9: PHQ-9 Score PHQ-9: Total score 0 09/06/23 10:10 Depression Screening Interpretation: Negative Thrive Assessment: Date of Thrive Assessment Date Thrive assessed 09/06/23 09/06/23 10:10 Currently or been in a relationship where the following occur: no concerns reported Const General: alert; No acute distress Eyes Conjunctivae: conjunctivae normal Resp Auscultation: clear to auscultation bilaterally Cardio Rate: regular rate Rhythm: regular rhythm GI Inspection: Yes normal to inspection Extrem General: Yes normal to inspection and No edema Assessment and Plan Assessment & Plan (1) Iron deficiency anemia: Code(s): D50.9 - Iron deficiency anemia, unspecified Plan: Advised to take iron and vitamin-C. (2) Obesity (BMI 30-39.9): Code(s): E66.9 - Obesity, unspecified Plan: Diet and exercise (3) Menorrhagia: Code(s): N92.0 - Excessive and frequent menstruation with regular cycle Orders: Orders Free T4 (Free Thyroxine) Today D50.9 - Iron deficiency anemia, unspecified Thyroid Stimulating Hormone Today D50.9 - Iron deficiency anemia, unspecified Vitamin B12 and Folate Today D50.9 - Iron deficiency anemia, unspecified Ferritin Today D50.9 - Iron deficiency anemia, unspecified Complete Blood Count Auto Diff Today D50.9 - Iron deficiency anemia, unspecified Comprehensive Met. Panel Today D50.9 - Iron deficiency anemia, unspecified IRON PROFILE Today D50.9 - Iron deficiency anemia, unspecified Reticulocyte Count Today D50.9 - Iron deficiency anemia, unspecified Coding Level of Care Code New Pt Level 4 (12887) Diagnoses Iron deficiency anemia D50.9 Obesity (BMI 30-39.9) E66.9 Menorrhagia N92.0
== END 2023-09-06 11:03 | disposition home or self-care (01) ==
PROVIDERS: PCP Internal Medicine; Visit Provider Internal Medicine
DX: D50.9 Iron deficiency anemia, unspecified (principal); E66.9 Obesity, unspecified; N92.0 Excessive and frequent menstruation with regular cycle; Z68.34 Body mass index [BMI] 34.0-34.9, adult
CPT/HCPCS: 99204

== ENCOUNTER 2023-09-08 07:34 | Outpatient (REF) | payer OTHER, SELFPAY ==
[2023-09-08 07:42] LABS: MANUAL DIFF FLAG NO
[2023-09-08 08:11] LABS: Basophils Percent Auto 0.5 % (0-2); Eosinophils Absolute Auto 0.2 X10*3/uL (0.0-0.4); Eosinophils Percent Auto 3.7 % (0-4); Hematocrit 33.9 % (37.0-47.0); Hemoglobin 11.2 g/dl (12.0-16.0); Imm Gran Abs Auto 0.03 X10*3/uL (0.00-0.03); Imm Gran Pct Auto 0.5 % (0.0-0.4); Immature Retic Fraction 12.6 % (3.0-15.9); Lymphocytes Absolute Auto 1.4 X10*3/uL (1.2-4.9); Lymphocytes Percent Auto 23.1 % (20-40); Mean Corpuscular Hemoglobin 27.6 pg (27.0-33.0); Mean Corpuscular Volume 83.5 fL (80.0-98.0); Monocytes Absolute Auto 0.7 X10*3/uL (0.1-1.2); Monocytes Percent Auto 11.6 % (2-11); Neutrophils Absolute Auto 3.8 x10*3/uL (2.0-8.3); Neutrophils Percent Auto 60.6 % (45-73); Platelet Count 233 X10*3/uL (160-400); Red Blood Count 4.06 X10*6/uL (4.20-5.50); Red Cell Distribution Width 14.7 % (11.0-16.0); Retic HGB Equivalent 30.3 pg (30.0-35.0); Reticulocyte Percent 1.7 % (0.5-1.8); Reticulocytes Absolute 0.068 X10*6/uL (0.026-0.095); White Blood Count 6.2 X10*3/uL (4.8-10.8)
[2023-09-08 08:41] LABS: Alanine Aminotransferase 30 U/L (0-31); Albumin Level 3.6 g/dL (3.5-5.0); Alkaline Phosphatase 67 U/L (39-117); Anion Gap 8 (12-20); Aspartate Amino Transferase 24 U/L (5-31); Bilirubin Total 0.5 mg/dL (0.0-1.0); Blood Urea Nitrogen 11 mg/dL (9-16); Calcium 8.6 mg/dL (8.4-10.2); Carbon Dioxide 26 mmol/L (22-29); Chloride 108 mmol/L (96-108); Estimated Glomerular Filt Rate > 60; Glucose Random 88 mg/dL (60-115); Iron 32 mcg/dL (30-160); Percent Iron Saturation 9 % (15-50); Potassium 4.1 mmol/L (3.3-5.1); Sodium 138 mmol/L (135-145); Total Iron Binding Capacity 340 mcg/dL (228-428); Total Protein 6.5 g/dL (6.5-8.0); Unsaturated Iron Binding 308 ug/dL
[2023-09-08 09:00] LABS: Ferritin 7 ng/mL (10-122); Free T4 (Free Thyroxine) 0.72 ng/dL (0.71-1.85); Thyroid Stimulating Hormone 1.02 uIU/mL (0.32-4.0)
[2023-09-08 09:01] LABS: Folate 8.4 ng/mL (> or = 4.0); Vitamin B12 405 pg/mL (200-900)
== END 2023-09-08 07:35 | disposition home or self-care (01) ==
LOC: HO.LAB 07:34
PROVIDERS: PCP Internal Medicine; Visit Provider Internal Medicine
DX: D50.9 Iron deficiency anemia, unspecified (principal)
CPT/HCPCS: 36415; 80053; 82607; 82728; 82746; 83540; 84439; 84443; 85025; 85045

== ENCOUNTER 2024-02-06 14:46 | Outpatient (AMB) | payer OTHER, SELFPAY ==
[2024-02-06 14:57] VITALS: BP 126/74; PULSE 81; O2SAT 94; BMI 36.6
--- NOTE | 2024-02-06 14:57 | MHC.PC.OV ---
Vital Signs 02/06/24 14:57 Height 5 ft 4 in Weight 213 lb BMI 36.6 BP 126/74 Blood Pressure Location Rt brachial Position Sitting Pulse 81 Pulse Source Pulse Oximeter Pulse Oximetry (%) 94 Oxygen Delivery Method Room Air Intake Visit Reasons: Annual Exam Service Operator Required: No Accompanied by: Son Allergies No Known Allergies Allergy (Unknown, Verified 02/06/24 14:58) UNKNOWN Medication List - Last Reconciled 02/06/24 by Shanell Shirley MD ascorbate calcium (vitamin C) 500 mg PO DAILY ferrous sulfate 325 mg PO DAILY Tobacco use date assessed: 09/06/23 Dental Screening Dental Screen Date: 09/06/23 HPI Annual Exam HPI Details 38-year-old obese female(noted 13 lb weight gain) coming in for physical exam. Patient has history of menorrhagia and iron deficiency anemia. LMP now and 1-2 weeks and PMPlate November /early december. [facility] Medical History (Updated 02/06/24 @ 15:18 by Shanell Shirley MD) Anemia Lipoma Lump in neck Surgical History (Updated 05/27/23 @ 14:26 by Esther Marion MD) History of excision of mass Family History (Updated 09/06/23 @ 10:50 by Shanell Shirley MD) Mother COPD (chronic obstructive pulmonary disease) Ovarian cancer Maternal Grandmother Breast cancer Sister Seizure Sister MSG (monosodium glutamate) intolerance Son No problems noted. Son No problems noted. Son No problems noted. 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 1. Little interest or pleasure in doing things: not at all 2. Feeling down, depressed, or hopeless: not at all 3. Trouble falling or staying asleep, or sleeping too much: not at all 4. Feeling tired or having little energy: not at all 5. Poor appetite or overeating: not at all 6. Feeling bad about yourself - or that you are a failure or have let yourself or your family down: not at all 7. Trouble concentrating on things, such as reading the newspaper or watching television: not at all 8. Moving or speaking so slowly that other people could have noticed. Or the opposite - being so fidgety or restless that you have been moving around a lot more than usual: not at all 9. Thoughts that you would be better off or of hurting yourself in some way: not at all Total score: 0 Source: Developed by Drs. Devaughn Aguayo, Sully Moreira, Mariusz Schwab and colleagues, with an educational delia from [employer]. Thrive Questionnaire Date Thrive assessed: 09/06/23 I am a: Patient What is your living situation today?: I have a steady place to live Within the past 12 months, did the food you bought not last and you didn't have the money to get more?: Never true Within the past 12 months, did you worry whether your food would run out before you got money to buy more?: Never true Do you have trouble paying for medicines?: No Do you have trouble getting transportation to medical appointments?: No Do you have trouble paying your heating and electricity bill?: No Do you have trouble taking care of your child, family member or friend?: Yes Do you have trouble with day-to-day activities such as bathing, preparing meals, shopping, managing finances, etc.?: No Are you currently unemployed and looking for a job?: No Are you interested in more education?: No Please select the resources that you would like help with: None Currently or been in a relationship where the following occur: No concerns reported THRIVE Score: 0 AUDIT C Alcohol Use Questionnaire (AUDIT-C) 1. How often do you have a drink containing alcohol?: Never Total Score: 0 GEMMA-7 AMB Questionnaire GEMMA-7 Date GEMMA - 7 assessed: 09/06/23 Feeling nervous, anxious, or on edge: 0 = Not at all Not being able to stop or control worryin = Not at all Worrying too much about different things: 0 = Not at all Trouble relaxin = Not at all Being so restless that it is hard to sit still: 0 = Not at all Becoming easily annoyed or irritable: 0 = Not at all Feeling afraid as if something awful might happen: 0 = Not at all Total GEMMA-7 score (0-4 normal; 5-9 mild; 10-14 moderate; 15-21 severe): 0 Source: Developed by Drs. Devaughn Aguayo, Sully Moreira, Mariusz Schwab and colleagues, with an educational delia from [employer]. Review of Systems Const Denies poor appetite and Denies weakness Eyes Denies no additional complaints ENT Reports Normal hearing present, Denies dizziness, Denies nasal congestion, Denies tinnitus and Denies sore throat Card Denies chest pain, Denies syncope, Denies rapid heart rate and Denies dyspnea Resp Denies cough and Denies dyspnea GI Denies change in stool character, Reports constipation, Denies diarrhea, Denies nausea and Denies vomiting Denies urinary frequency, Denies difficulty voiding and Denies dysuria Neuro Reports Normal hearing present, Denies confusion, Denies dizziness, Denies syncope and Denies weakness Psych Denies confusion Physical exam (Primary Care) Vital Signs: Last Vital Signs Pulse 81 02/06/24 14:57 BP 126/74 02/06/24 14:57 Pulse Ox 94 02/06/24 14:57 Oxygen Delivery Method Room Air 02/06/24 14:57 BMI result Body Mass Index 36.6 Tobacco/Smoking Status: Tobacco use Status Tobacco use date assessed 09/06/23 02/06/24 15:01 Patient Tobacco Use Status Never used Tobacco 02/06/24 15:01 Tobacco use type Cigarette 02/06/24 15:01 e-Cigarette/Vaping Use Never Used 02/06/24 15:01 PHQ-9: PHQ-9 Score PHQ-9: Total score 0 02/06/24 15:01 Thrive Assessment: Date of Thrive Assessment Date Thrive assessed 09/06/23 02/06/24 15:01 Currently or been in a relationship where the following occur: No concerns reported Const General: No confusion Orientation/consciousness: No confusion HENMT Head: Yes normocephalic Ears: external ears normal and TM's normal bilaterally Face and sinus: Yes normal facial exam Mouth: moist mucous membranes Throat: Yes tonsils normal Eyes Conjunctivae: conjunctivae normal Pupils: Equal, round and reactive pupils present and Pupil accommodation reflex normal Direct Ophthalmoscopy: normal light reflex Neck Neck: No lymphadenopathy Thyroid: Thyroid normal Chest Chest palpation & inspection: normal inspection of the chest Resp Effort & Inspection: normal respiratory effort and no audible wheezes Auscultation: clear to auscultation bilaterally, no crackles, no wheezes and lung sounds not diminished Cardio Rate: regular rate Rhythm: regular rhythm Peripheral pulses: radial pulses present and dorsalis pedis present GI Palpation (GI): no masses Auscultation: normal bowel sounds and normoactive bowel sounds Rectal Exam - Female: deferred Skin General skin exam: no rashes or lesions noted Rashes: no rashes Neuro General: No confusion Cranial nerves: Yes Equal, round and reactive pupils present and Yes Normal hearing present Cognition (Neuro): normal cognition Gait exam (Neuro): Normal gait present Motor exam (neuro): 5/5 motor strength present throughout Deep tendon reflexes (DTR's): Right brachioradialis reflex intensity grade: 2+, Left brachioradialis reflex intensity grade: 2+, Right patellar reflex intensity grade: 2+ and Left patellar reflex intensity grade: 2+ Extrem General: No edema Assessment and Plan Assessment & Plan (1) Annual physical exam: Code(s): Z00.00 - Encounter for general adult medical examination without abnormal findings Plan: Patient is advised to eat healthy, keep well hydrated, keep active and have adequate sleep. (2) Obesity (BMI 30-39.9): Code(s): E66.9 - Obesity, unspecified Plan: Diet and exercise (3) Menorrhagia: Code(s): N92.0 - Excessive and frequent menstruation with regular cycle Plan: Patient was advised to follow-up with gynecology (4) Iron deficiency anemia: Code(s): D50.9 - Iron deficiency anemia, unspecified Plan: Presently on iron and vitamin-C repeat blood work Orders: Orders Complete Blood Count Auto Diff Today D50.9 - Iron deficiency anemia, unspecified Comprehensive Met. 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
== END 2024-02-06 15:33 | disposition home or self-care (01) ==
PROVIDERS: Visit Provider Internal Medicine
DX: Z00.00 Encounter for general adult medical examination without abnormal findings (principal); E66.9 Obesity, unspecified; N92.0 Excessive and frequent menstruation with regular cycle; D50.9 Iron deficiency anemia, unspecified; Z68.36 Body mass index [BMI] 36.0-36.9, adult
CPT/HCPCS: 99395

== ENCOUNTER 2024-02-09 07:42 | Outpatient (REF) | payer OTHER, SELFPAY ==
[2024-02-09 07:59] LABS: MANUAL DIFF FLAG NO
[2024-02-09 08:10] LABS: Basophils Absolute Auto 0.1 X10*3/uL (0.0-0.2); Basophils Percent Auto 1.3 % (0-2); Eosinophils Absolute Auto 0.2 X10*3/uL (0.0-0.4); Eosinophils Percent Auto 4.5 % (0-4); Hematocrit 35.9 % (37.0-47.0); Hemoglobin 12.1 g/dl (12.0-16.0); Imm Gran Abs Auto 0.01 X10*3/uL (0.00-0.03); Imm Gran Pct Auto 0.2 % (0.0-0.4); Immature Retic Fraction 11.4 % (3.0-15.9); Lymphocytes Absolute Auto 1.2 X10*3/uL (1.2-4.9); Lymphocytes Percent Auto 27.1 % (20-40); Mean Corpuscular HGB Conc 33.7 g/dl (31.0-35.0); Mean Corpuscular Hemoglobin 28.5 pg (27.0-33.0); Mean Corpuscular Volume 84.7 fL (80.0-98.0); Mean Platelet Volume 10.4 fL (9.4-12.3); Monocytes Absolute Auto 0.5 X10*3/uL (0.1-1.2); Monocytes Percent Auto 11.9 % (2-11); Neutrophils Absolute Auto 2.5 x10*3/uL (2.0-8.3); Platelet Count 251 X10*3/uL (160-400); Red Blood Count 4.24 X10*6/uL (4.20-5.50); Red Cell Distribution Width 13.8 % (11.0-16.0); Retic HGB Equivalent 31.6 pg (30.0-35.0); Reticulocytes Absolute 0.085 X10*6/uL (0.026-0.095); White Blood Count 4.5 X10*3/uL (4.8-10.8)
[2024-02-09 09:29] LABS: Alanine Aminotransferase 17 U/L (0-31); Alkaline Phosphatase 72 U/L (39-117); Anion Gap 10 (12-20); Aspartate Amino Transferase 21 U/L (5-31); Bilirubin Total 0.6 mg/dL (0.0-1.0); Blood Urea Nitrogen 11 mg/dL (9-16); Calcium 9.1 mg/dL (8.4-10.2); Carbon Dioxide 28 mmol/L (22-29); Chloride 106 mmol/L (96-108); Cholesterol 188 mg/dL (<200); Estimated Glomerular Filt Rate > 60; Glucose Random 91 mg/dL (60-115); HDL Cholesterol 63 mg/dL (>40); Iron 145 mcg/dL (30-160); LDL Cholesterol Calculated 114 mg/dL (<100); Percent Iron Saturation 41 % (15-50); Potassium 4.3 mmol/L (3.3-5.1); Sodium 140 mmol/L (135-145); Total Iron Binding Capacity 354 mcg/dL (228-428); Total Protein 7.1 g/dL (6.5-8.0); Triglycerides 55 mg/dL (<150); Unsaturated Iron Binding 209 ug/dL
[2024-02-09 09:52] LABS: Ferritin 22 ng/mL (10-122); Free T4 (Free Thyroxine) 0.81 ng/dL (0.71-1.85); Vitamin D 25-OH Total 14.8 ng/mL (>30)
[2024-02-09 09:56] LABS: Folate 12.5 ng/mL (> or = 4.0); Vitamin B12 460 pg/mL (200-900)
== END 2024-02-09 07:43 | disposition home or self-care (01) ==
LOC: HO.LAB 07:42
PROVIDERS: PCP Internal Medicine; Visit Provider Internal Medicine
DX: D50.9 Iron deficiency anemia, unspecified (principal); E78.00 Pure hypercholesterolemia, unspecified
CPT/HCPCS: 36415; 80053; 80061; 82306; 82607; 82728; 82746; 83540; 84439; 85025; 85045

== ENCOUNTER 2024-09-06 10:59 | Outpatient (AMB) | payer OTHER, SELFPAY ==
--- NOTE | 2024-09-06 11:06 | MHC.OFFVIS ---
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 The patient had ParaGard IUD inserted on 9 years ago Last co testing was in 07/19 was negative PFSH Medical History Anemia Lipoma Lump in neck Surgical History History of excision of mass Family History Mother COPD (chronic obstructive pulmonary disease) Ovarian cancer Maternal Grandmother Breast cancer Sister Seizure Sister MSG (monosodium glutamate) intolerance Son No problems noted. Son No problems noted. Son No problems noted. 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 [employer] Current occupational exposures/hazards: No Sexual orientation: Straight/Heterosexual Cognitive needs: No Hearing needs: No Vision needs: No Female Reproductive History Menstrual Age of Menarche: 13 Duration of menses: 8-10 days Date of last menstrual period: 08/21/24 control method: progestin IUCD Total pregnancies: 3 Full term: 3 Date of last pap smear: 07/24/19 (negative pap smear, negative hpv ) History of abnormal pap smear: No Review of Systems Const All systems reviewed & are unremarkable except as noted in HPI and below Card Reports as per HPI Resp Reports as per HPI GI Reports as per HPI and Reports no additional complaints Reports as per HPI Physical Exam Vital Signs: Last Vital Signs BP 124/72 09/06/24 11:15 BMI result Body Mass Index 37.4 Const General: cooperative, healthy appearing and comfortable Chest Chest palpation & inspection: normal inspection of the chest and normal palpation of entire chest wall Breast/axilla inspection: normal inspection of the breasts and normal inspection of the axillae Breast/axilla palpation: normal palpation of the breasts, normal palpation of the axillae and no axillary lymphadenopathy Resp Effort & Inspection: normal respiratory effort Auscultation: clear to auscultation bilaterally Percussion: percussion normal Cardio Palpation: normal PMI Rate: regular rate Rhythm: regular rhythm Heart sounds: no murmurs and no rubs Peripheral pulses: Peripheral pulses 2+ throughout GI Inspection: Yes normal to inspection Palpation (GI): Soft to palpation, nontender, no guarding, not rigid and No hepatosplenomegaly present Percussion: Yes normal to percussion Auscultation: normal bowel sounds Rectal Exam - Female: deferred General: Yes bladder normal to palpation External Female Exam: No lesion Speculum Exam - Vagina: normal appearance of the vagina, normal palpation, normal vaginal discharge and not erythematous Speculum Exam - Cervix: normal appearance of the cervix, normal palpation and Other cervical findings present (IUD string seen) Bimanual exam- vagina & uterus: normal bimanual exam, normal palpation, uterine size normal, bladder normal to palpation, consistency normal and normal palpation Bimanual Exam- Adnexa, other: normal adnexae, no masses and no tenderness Results AMB Test Urine AMB Test Urine Negative Last Edit by Odette Frias CMA on 09/06/24 11:31 Assessment & Plan Assessment & Plan (1) Abnormal uterine bleeding: Comment: On ParaGard IUD Code(s): N93.9 - Abnormal uterine and vaginal bleeding, unspecified Category: Medical Plan: Screening mammogram to be done in 02/21 ordered. Co testing done, GC and chlamydia taken CBC, TSH, HCG, and pelvic ultrasound ordered. Discussed with the patient the different causes of abnormal bleeding including thyroid disorders, uterine and ovarian pathology, endometrial hyperplasia, carcinoma and other potential causes. Discussed with the patient the work up including CBC (to r/o anemia), TSH, pelvic Ultrasound, endometrial biopsy to r/o endometrial pathology. All questions answered and the patient verbalized understanding. Instructed the patient to schedule an appointment for an endometrial biopsy in 2 weeks. (2) IUD check up: Comment: ParaGard IUD for 9 years Code(s): Z30.431 - Encounter for routine checking of intrauterine contraceptive device Category: Medical Plan: Discussed with the patient the ParaGard IUD FDA approved for 10 years, will check the results of the AUB workup and discussed options of treatment within 2 weeks. All questions answered, the patient verbalized understanding Orders: Orders TSH reflex Free T4 Today N93.9 - Abnormal uterine and vaginal bleeding, unspecified HCG Quantitative Today N93.9 - Abnormal uterine and vaginal bleeding, unspecified US pelvic and transvaginal Today N93.9 - Abnormal uterine and vaginal bleeding, unspecified MM screening mammo BI 5 Months Z12.31 - Encounter for screening mammogram for malignant neoplasm of breast AMB HCG Urine Test Today Z32.02 - Encounter for test, result negative Complete Blood Count no Diff Today N93.9 - Abnormal uterine and vaginal bleeding, unspecified Coding Level of Care Code New Pt Level 3 (84987) Diagnoses Abnormal uterine bleeding N93.9 IUD check up Z30.431
[2024-09-06 11:15] VITALS: BP 124/72; BMI 37.4
== END 2024-09-06 11:40 | disposition home or self-care (01) ==
LOC: HO.HWS 10:59
PROVIDERS: PCP Internal Medicine; Visit Provider Obstetrics & Gynecology
DX: N93.9 Abnormal uterine and vaginal bleeding, unspecified (principal); Z30.431 Encounter for routine checking of intrauterine contraceptive device; Z32.02 Encounter for pregnancy test, result negative
CPT/HCPCS: 99203

== ENCOUNTER 2024-09-06 10:59 | Outpatient (REF) | payer OTHER, SELFPAY ==
[2024-09-06 12:44] LABS: Hematocrit 37.7 % (37.0-47.0); Hemoglobin 12.3 g/dl (12.0-16.0); Mean Corpuscular HGB Conc 32.6 g/dl (31.0-35.0); Mean Corpuscular Volume 85.7 fL (80.0-98.0); Mean Platelet Volume 10.9 fL (9.4-12.3); Platelet Count 269 X10*3/uL (160-400); Red Cell Distribution Width 13.2 % (11.0-16.0); White Blood Count 7.3 X10*3/uL (4.8-10.8)
[2024-09-06 13:48] LABS: HCG Quantitative < 2 mIU/mL; TSH reflex Free T4 1.15 uIU/mL (0.32-4.0)
[2024-09-07 04:11] LABS: CT PCR NOT DETECTED (Not Detect.); NG PCR NOT DETECTED (Not Detect.)
[2024-09-11 14:23] LABS: HPV Genotype 16 Negative (Negative); HPV Genotype 18 Negative (Negative); HPV High Risk Negative (Negative)
== END 2024-09-06 11:00 | disposition home or self-care (01) ==
LOC: HO.LAB 10:59
PROVIDERS: PCP Internal Medicine; Visit Provider Obstetrics & Gynecology
DX: Z30.431 Encounter for routine checking of intrauterine contraceptive device (principal); N93.9 Abnormal uterine and vaginal bleeding, unspecified
CPT/HCPCS: 81025; 84443; 84702; 85027; 87491; 87591; 87626; 88175; 99202

== ENCOUNTER 2024-10-03 13:42 | Outpatient (REF) | payer OTHER, SELFPAY ==
--- NOTE | ~2024-10-03 | US_ITS ---
CLINICAL HISTORY: ABNORMAL UTERINE AND VAGINAL BLEEDING Transabdominal and transvaginal pelvic ultrasound Comparison: None Findings: Uterus 8.9 x 6.0 x 6.0 cm. Endometrium not measured. IUD in good position. No free fluid. Right ovary 3.9 x 1.1 x 2.7 cm. Left ovary 3.4 x 1.5 x 2.9 cm. No significant focal abnormality. Impression: No significant abnormality This document has been electronically signed by: Nicholas Khan MD on 10/03/2024 18:36:52
== END 2024-10-03 13:43 | disposition home or self-care (01) ==
LOC: HO.US 13:42
PROVIDERS: PCP Internal Medicine; Visit Provider Obstetrics & Gynecology
DX: N93.9 Abnormal uterine and vaginal bleeding, unspecified (principal)
CPT/HCPCS: 76830; 76856

== ENCOUNTER → 2024-10-03 13:45 | Outpatient (BNV) | payer OTHER, SELFPAY | PROVIDERS: PCP Internal Medicine; Visit Provider Radiology Diagnostic Radiology | DX: N93.9 Abnormal uterine and vaginal bleeding, unspecified (principal) | CPT/HCPCS: 76830; 76856 ==

== ENCOUNTER 2024-11-27 15:13 | Outpatient (AMB) | payer OTHER, SELFPAY ==
--- NOTE | 2024-11-27 15:16 | MHC.OFFVIS ---
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 Son No problems noted. Son No problems noted. 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 [employer] Current occupational exposures/hazards: No Sexual orientation: Straight/Heterosexual Cognitive needs: No Hearing needs: No Vision needs: No Female Reproductive History Menstrual Age of Menarche: 13 Review of Systems Const All systems reviewed & are unremarkable except as noted in HPI and below Reports as per HPI and Reports no additional complaints GI Reports no additional complaints Reports no additional complaints Office Procedures Endometrial Biopsy Details: The patient was counseled regarding the indication and benefits of endometrial sampling to rule out endometrial pathology including not limited to endometrial hyperplasia or endometrial cancer and others; The alternatives (Either do nothing vs. hysteroscopy D&C) & the risks were discussed with the patient including but not limited: pain, uterine perforation, bleeding, infection, possible injury to bladder, bowel, ureter, possible need for blood transfusion with all its possible risks. The patient verbalized understanding all questions answered and signed consent. Urine test done in the office was negative The patient was placed into the dorsal lithotomy position; a speculum was inserted in the vagina. Using aseptic technique for the procedure, the cervix was cleansed with Betadine. The anterior lip of the cervix was grasped with a single tooth tenaculum. The uterus was sounded to 7 cm with a 4 mm Pipelle was used. Tissues samples were obtained and placed in formalin, in a patient labeled container and sent to the pathology department. At the end of the procedure, there was minimal bleeding noted The patient tolerated the procedure well and was discharged in good condition with the following instructions: Nothing in the vagina until the bleeding stops. No sex until the bleeding stops, to call if any of the following occurs: fever (>100.4), flu-like symptoms, abdominal pain, heavy bleeding, four smelling vaginal discharge. The patient was instructed to schedule a Follow up appointment in 2 weeks to discuss pathology results of the biopsy and treatment options. This note was generated with a voice recognition program. Some errors may have been overlooked during the review of this note. Sometimes these errors may affect the content or meaning of a given sentence. [id number] Biopsy Assessment & Plan Assessment & Plan (1) Abnormal uterine bleeding: Comment: On ParaGard IUD Code(s): N93.9 - Abnormal uterine and vaginal bleeding, unspecified Category: Medical Plan: EMB done, see procedure note Orders: Orders AMB Endometrial Biopsy Today N93.9 - Abnormal uterine and vaginal bleeding, unspecified Coding Level of Care Code Procedure Only Diagnoses Abnormal uterine bleeding N93.9 CPT Codes Endometrial Biopsy - CPT: 90579-[id number] Biopsy ([id number])
== END 2024-11-27 15:51 | disposition home or self-care (01) ==
LOC: HO.HWS 15:14
PROVIDERS: PCP Internal Medicine; Visit Provider Obstetrics & Gynecology
DX: N93.9 Abnormal uterine and vaginal bleeding, unspecified (principal)
CPT/HCPCS: 58100

== ENCOUNTER 2024-11-27 15:13 | Outpatient (REF) | payer OTHER, SELFPAY | END 2024-11-27 15:14 | disposition home or self-care (01) | LOC: HO.LNP 15:13 | PROVIDERS: PCP Internal Medicine; Visit Provider Obstetrics & Gynecology | DX: N93.9 Abnormal uterine and vaginal bleeding, unspecified (principal); Z97.5 Presence of (intrauterine) contraceptive device | CPT/HCPCS: 58100; 88305 ==

== ENCOUNTER 2024-12-04 08:33 | Outpatient (REF) | payer OTHER, SELFPAY | END 2024-12-04 08:34 | disposition home or self-care (01) | LOC: HO.LNP 08:33 | PROVIDERS: PCP Internal Medicine; Visit Provider Obstetrics & Gynecology | DX: N93.9 Abnormal uterine and vaginal bleeding, unspecified (principal) | CPT/HCPCS: 58100; 81025; 88305 ==

== ENCOUNTER 2024-12-04 08:33 | Outpatient (AMB) | payer OTHER, SELFPAY ==
--- NOTE | 2024-12-04 08:39 | A.OFFVIS_ITS ---
Vital Signs 12/04/24 08:41 BP 126/70 Intake Visit Reasons: pre op for hyst Hospital Nurse Liaison Required: No Information Interpreted: non-clinical & clinical Electric Locomotive Firer/Fireman: Electric Locomotive Firer/Fireman Present (Odette ZIMMERMAN) Accompanied by: Self / Same As Patient Allergies No Known Allergies Allergy (Unknown, Verified 12/04/24 08:52) UNKNOWN HPI Comments Details: The patient is presenting after endometrial biopsy. The patient has no complaints, no vaginal bleeding, no feverishness chills or abdominal pain. The endometrial biopsy pathology report showed the following: Endometrium, biopsy: Benign endocervical glandular mucosa and rare squamous epithelial cells; insufficient for endometrial evaluation. [facility] Medical History Anemia Lipoma Lump in neck Surgical History History of excision of mass Family History Mother COPD (chronic obstructive pulmonary disease) Ovarian cancer Maternal Grandmother Breast cancer Sister Seizure Sister MSG (monosodium glutamate) intolerance Son No problems noted. Son No problems noted. Son No problems noted. 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 hysteroscopy D&C) & the risks were discussed with the patient including but not limited: pain, uterine perforation, bleeding, infection, possible injury to bladder, bowel, ureter, possible need for blood transfusion with all its possible risks. The patient verbalized understanding all questions answered and signed consent. Urine test done in the office was negative The patient was placed into the dorsal lithotomy position; a speculum was inserted in the vagina. Using aseptic technique for the procedure, the cervix was cleansed with Betadine. The anterior lip of the cervix was grasped with a single tooth tenaculum. The uterus was sounded to 7 cm with a 4 mm Pipelle was used. Tissues samples were obtained and placed in formalin, in a patient labeled container and sent to the pathology department. At the end of the procedure, there was minimal bleeding noted The patient tolerated the procedure well and was discharged in good condition with the following instructions: Nothing in the vagina until the bleeding stops. No sex until the bleeding stops, to call if any of the following occurs: fever (>100.4), flu-like symptoms, abdominal pain, heavy bleeding, four smelling vaginal discharge. The patient was instructed to schedule a Follow up appointment in 2 weeks to discuss pathology results of the biopsy and treatment options. This note was generated with a voice recognition program. Some errors may have been overlooked during the review of this note. Sometimes these errors may affect the content or meaning of a given sentence. [id number] Biopsy Results AMB Test Urine AMB Test Urine Negative Last Edit by Odette Frias CMA on 08:52 Assessment & Plan Assessment & Plan (1) Abnormal uterine bleeding: Comment: On ParaGard IUD Code(s): N93.9 - Abnormal uterine and vaginal bleeding, unspecified Category: Medical Plan: Discussed with the patient the pathology results, insufficient for diagnosis. Recommended to the patient that the next step is an endometrial sampling via hysteroscopy D&C possible polypectomy versus endometrial biopsy to r/o endometrial pathology including hyperplasia or cancer. All the pros and cons risks and benefits of each approach were discussed with the patient, endometrial biopsy being less invasive, office procedure with less sensitivity and inability diagnose a polyp and removal versus hysteroscopy done under anesthesia more invasive more sensitive to endometrial cancer and possibility of diagnosing and endometrial polyp with the possibility of polypectomy. All questions were answered pt verbalized understanding and decided to proceed with endometrial biopsy. EMB done, see procedure Orders: Orders AMB HCG Urine Test Today Z32.02 - Encounter for test, result negative AMB Endometrial Biopsy Today N93.9 - Abnormal uterine and vaginal bleeding, unspecified Coding Level of Care Code Procedure Only Diagnoses Abnormal uterine bleeding N93.9 CPT Codes Endometrial Biopsy - CPT: 77826-Hxsudlakwjh Biopsy ([id number])
[2024-12-04 08:41] VITALS: BP 126/70
== END 2024-12-04 08:59 | disposition home or self-care (01) ==
LOC: HO.HWS 08:34
PROVIDERS: PCP Internal Medicine; Visit Provider Obstetrics & Gynecology
DX: N93.9 Abnormal uterine and vaginal bleeding, unspecified (principal); Z32.02 Encounter for pregnancy test, result negative
CPT/HCPCS: 58100

== ENCOUNTER 2024-12-11 07:04 | Outpatient (AMB) | payer OTHER, SELFPAY ==
--- NOTE | 2024-12-11 07:11 | MHC.OFFVIS ---
Vital Signs 12/11/24 07:20 Height 5 ft 4 in Weight 218 lb BMI 37.4 BP 122/80 Intake Visit Reasons: emb results/pre op Private Equity Analyst Required: No Information Interpreted: non-clinical & clinical Product Safety Test Engineer: Product Safety Test Engineer Present Accompanied by: Self / Same As Patient Allergies No Known Allergies Allergy (Unknown, Verified 12/11/24 07:21) UNKNOWN Is last menstrual period known: Yes Last menstrual period: 03/27/20 Post menopausal: No Patient : No Do you need a note to return to daycare/school/sports/work: Yes (for surgery on tuesday) HPI Comments Details: The patient is presenting after endometrial biopsy. The patient has no complaints, no vaginal bleeding, no feverishness chills or abdominal pain. The endometrial biopsy pathology report showed the following: Endometrium, biopsy: Disordered proliferative endometrium with focal endometrial hyperplasia without atypia, focal secretory glands, tubal metaplasia, and glandular and stromal breakdown; no atypia or carcinoma. Comment: Some fragments may be derived from endometrial polyps. Follow-up is warranted [facility] Medical History Anemia Lipoma Lump in neck Surgical History History of excision of mass Family History Mother COPD (chronic obstructive pulmonary disease) Ovarian cancer Maternal Grandmother Breast cancer Sister Seizure Sister MSG (monosodium glutamate) intolerance Son No problems noted. Son No problems noted. Son No problems noted. 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 [employer] Current occupational exposures/hazards: No Sexual orientation: Straight/Heterosexual Cognitive needs: No Hearing needs: No Vision needs: No Female Reproductive History Menstrual Age of Menarche: 13 Date of last menstrual period: 03/27/20 Total pregnancies: 2 Full term: 2 Review of Systems Card Reports as per HPI and Reports no additional complaints Resp Reports as per HPI and Reports no additional complaints GI Reports as per HPI and Reports no additional complaints Reports as per HPI Physical Exam Vital Signs: Last Vital Signs BP 122/80 12/11/24 07:20 BMI result Body Mass Index 37.4 Const General: cooperative, healthy appearing and comfortable Resp Effort & Inspection: normal respiratory effort Auscultation: clear to auscultation bilaterally Percussion: percussion normal Cardio Palpation: normal PMI Rate: regular rate Rhythm: regular rhythm Heart sounds: no murmurs and no rubs Peripheral pulses: Peripheral pulses 2+ throughout GI Inspection: Yes normal to inspection Palpation (GI): Soft to palpation, nontender, no guarding, not rigid and No hepatosplenomegaly present Percussion: Yes normal to percussion Auscultation: normal bowel sounds Rectal Exam - Female: deferred Assessment & Plan Assessment & Plan (1) Endometrial hyperplasia: Comment: No atypia with a fragments of endometrial polyp Code(s): N85.00 - Endometrial hyperplasia, unspecified Category: Medical Plan: Discussed with the patient the results the pathology showing endometrial hyperplasia and fragments of a polyp, recommended hysteroscopy D&C polypectomy D&C with ParaGard IUD removal. Discussed with the patient the procedure , all benefits and risks including but not limited to inability to complete the procedure , insufficient endometrial tissue for a complete evaluation of the endometrial cavity , bleeding, infection, possible need for blood transfusion with all its risk ( HIV,syphilis, Hepatitis, anaphylaxis shock, others..), injury to bladder, rectum, possible need for laparoscopy/laparotomy or hysterectomy. The patient verbalized understanding and signed the consent. Instructions given the patient to stay NPO after midnight the day prior to the procedure and to take only the specific medication (s) discussed the morning of the surgical procedure and to schedule a 2 week postoperative appointment Coding Level of Care Code Est Pt Level 3 (44040) Diagnoses Endometrial hyperplasia N85.00
[2024-12-11 07:20] VITALS: BP 122/80; BMI 37.4
== END 2024-12-11 07:51 | disposition home or self-care (01) ==
LOC: HO.HWS 07:05
PROVIDERS: PCP Internal Medicine; Visit Provider Obstetrics & Gynecology
DX: N85.00 Endometrial hyperplasia, unspecified (principal)
CPT/HCPCS: 99213

== ENCOUNTER → 2024-12-11 07:04 | Outpatient (BNVA) | payer OTHER, SELFPAY | PROVIDERS: PCP Internal Medicine; Visit Provider Obstetrics & Gynecology | DX: Z71.2 Person consulting for explanation of examination or test findings (principal); N85.00 Endometrial hyperplasia, unspecified | CPT/HCPCS: 99212 ==

== ENCOUNTER 2024-12-19 11:44 | Day surgery (SDC) | payer OTHER, SELFPAY ==
[2024-12-17 11:19] VITALS: BMI 37.4
[2024-12-19 12:43] LABS: UPreg QC Valid YES
[2024-12-19 13:35] VITALS: BP 144/68; PULSE 57; RESP 20; TEMP 36.9; O2SAT 98; BMI 39.5
[2024-12-19] MEDS: Lactated Ringers 1,000 ML 100 ML IVCONT (13:51)
--- NOTE | 2024-12-19 14:12 | HO.ANESPROP2 ---
HPI - Anesthesia Eval Consult details Narrative: for Uriel rubio [facility] Active Problems Active Problems: All Active Problems (Updated 12/11/24 @ 07:35 by Felipe Monahan MD) Endometrial hyperplasia (Acute) IUD check up (Acute) Abnormal uterine bleeding (Acute) Annual physical exam (Acute) Menorrhagia (Acute) Obesity (BMI 30-39.9) (Acute) Iron deficiency anemia (Acute) Lipoma (Acute) Lump in neck (Acute) Potential exposure to STD (Acute) Irregular menses (Acute) Past Medical History Medical History Anemia Lipoma Lump in neck Family History Family History Mother COPD (chronic obstructive pulmonary disease) Ovarian cancer Maternal Grandmother Breast cancer Sister Seizure Sister MSG (monosodium glutamate) intolerance Son No problems noted. Son No problems noted. Son No problems noted. Paternal Aunt Myocardial infarction Family history of problems with anesthesia: No Surgical History Surgical History History of excision of mass History of Problems with Anesthesia: No Social History Social History Household Members: Family Housing: House Are you a primary healthcare management to a significant other at home: No Do you presently have visiting nurse or other home services: No Alcohol intake: never Patient Tobacco Use Status: Never used Tobacco Tobacco use type: Cigarette e-Cigarette/Vaping Use: Never Used Second Hand Smoke Exposure: No Have you been hit, kicked, punched, or otherwise hurt by someone within the past year? 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 [employer] Current occupational exposures/hazards: No Sexual orientation: Straight/Heterosexual Cognitive needs: No Hearing needs: No Vision needs: No Meds Allergies Allergy/AdvReac Type Severity Reaction Status Date / Time No Known Allergies Allergy Unknown UNKNOWN Verified 12/11/24 07:21 Active Medications: Current Medications Lactated Ringer's (Lr) 1,000 mls @ 100 mls/hr IVCONT .Q10H JEFFREY Last Admin: 12/19/24 13:51 Dose: 100 mls/hr Exam Height,Weight and Vital Signs: Height 5 ft 4 in Weight 104.3 kg Last Vital Signs Temp 98.5 F 12/19/24 13:35 Pulse 57 12/19/24 13:35 Resp 20 12/19/24 13:35 BP 144/68 H 12/19/24 13:35 Pulse Ox 98 12/19/24 13:35 O2 Del Method Room Air 12/19/24 13:35 Pertinent Lab Results Pertinent Lab Results: Laboratory Tests 12/19/24 12:35 Urine Test NEGATIVE Airway Mallampati Class: II TM Dist: >3cm Neck ROM: Limited Heart: rrr Lungs: cta Assessment and Plan Assessment Anesthesia Assessment: Anesthesia Plan Discussed Final Anesthetic Review Family History of Problems with Anesthesia: No History of Problems with Anesthesia: No NPO: Yes ASA Class: II Final Preanesthetic Review: No Changes in Pt Med Stat, Meds/Allgs Chart Reviewed, Consent Obtained/Reviewed and Anes Risks/Benef Reviewed Patient Risk: Intermediate Procedure Risk: Low Anesthetic Plan Anesthetic Plan: GA Disposition: Standard PACU
--- NOTE | 2024-12-19 14:35 | MHC.SHP ---
Pre-Procedural Eval Section A - 24 Hr Update-Section A only Date of Service: 12/19/24 The patient is an INPATIENT: No Changes since office visit: No Cold of Flu in the past 2 weeks, No New Medical Problems, No Changes in Medication and No Patient answered all questions The patient has been examined within 24 hours of the surgical procedure. The History & Physical has been completed within 30 days and I have reviewed it.: Yes Section B - Complete if H&P > 30 days Chief Complaint: Endometrial hyperplasia, unspecified Allergies: Allergies Allergy/AdvReac Type Severity Reaction Status Date / Time No Known Allergies Allergy Unknown UNKNOWN Verified 12/11/24 07:21 Plan Diagnosis/Plan: Unchanged I have reviewed the history and physical and performed a pertinent physical examination on my patient. No changes have occurred unless specified. Time Spent With Patient Time: Total time managing care of this patient today ____ minutes.
--- NOTE | 2024-12-19 15:02 | P.BOP_ITS ---
Brief Operative Note Date of Service: 12/19/24 Pre-op diagnosis: Endometrial hyperplasia, endometrial polyp by EMB pathology, ParaGard IUD in uterine Post-op diagnosis: same Procedure: Hysteroscopy D&C, Polypectomy, ParaGard IUD removal Surgeon: Felipe Monahan MD Anesthesia: GLMA Was an Packaging Materials Inspector used for this Procedure?: No Estimated blood loss (mL): 0 Pathology: other (Endometrial Scrapping. Polyp) Condition: stable Disposition: PACU
--- NOTE | 2024-12-19 15:03 | P.OP_ITS ---
Operative Note Operative Note Date of Service: 12/19/24 Narrative: Preop Diagnosis: Endometrial hyperplasia, Endometrial polyp by EMB pathology, ParaGard IUD in utero Operation: Diagnostic Hysteroscopy, Dilataion & Curettage and polypectomy, IUD removal Post Op Diagnosis: Endometrial Polyp QBL: Minimal Anesthesia: GLMA Surgeon: Felipe Monahan MD Adult Services Librarian: None Complication: None Pathology: Endometrial Scrapings, Endometrial polyp Procedure: The patient was put in the dorsal lithotomy position, scrubbed, and draped in the usual manner. A sterile speculum was inserted in the patient's vagina. The anterior lip of the cervix was grasped with a single tooth tenaculum. IUD string was identified, using Christiana clamp ParaGard IUD was removed without complications. The cervix was then dilated up to 5 mm, then the scope was inserted in the patient's uterus. Inspection revealed endometrial polyp. The Myosure Reach device was used; it was introduced through the operative channel and polypectomy done with no complications. The scope was then taken out from the uterine cavity, sharp curettings was carried on with minimal to moderate amount of tissues retrieved. At the end of the procedure, all instruments were taken out of the patient uterine and vaginal cavity. The single tooth tenaculum was removed and homeostasis was assured using pressure,. The patient tolerated the procedure well and was transferred to the PACU in a stable condition.
[2024-12-19 15:10] VITALS: BP 122/64; PULSE 65; RESP 18; TEMP 36.3; O2SAT 100
[2024-12-19 15:15] VITALS: BP 112/67; PULSE 63; RESP 14; O2SAT 98
[2024-12-19 15:20] VITALS: BP 111/69; PULSE 55; RESP 12; O2SAT 98
[2024-12-19 15:25] VITALS: BP 115/69; PULSE 62; RESP 12; O2SAT 99
== END 2024-12-19 15:50 | disposition home or self-care (01) ==
PROVIDERS: PCP Internal Medicine; Visit Provider Obstetrics & Gynecology
PROC: 0UDB8ZZ Extraction of Endometrium, Via Natural or Artificial Opening Endoscopic (ICD-10-PCS; CPT 58558; principal; 2024-12-19 14:30)
DX: N84.0 Polyp of corpus uteri (principal); Z97.5 Presence of (intrauterine) contraceptive device; D64.9 Anemia, unspecified; Z79.899 Other long term (current) drug therapy; Z98.890 Other specified postprocedural states
CPT/HCPCS: 58558; 81025; 88305; J1100; J2003; J2250; J2405; J2704; J3010; J7298

== ENCOUNTER → 2024-12-19 11:44 | Outpatient (BNV) | payer OTHER, SELFPAY | PROVIDERS: PCP Internal Medicine; Visit Provider Obstetrics & Gynecology | DX: N84.0 Polyp of corpus uteri (principal); Z30.432 Encounter for removal of intrauterine contraceptive device | CPT/HCPCS: 58301; 58558 ==

== ENCOUNTER 2024-12-27 11:32 | Outpatient (AMB) | payer OTHER, SELFPAY ==
--- NOTE | 2024-12-27 11:33 | A.OFFVIS_ITS ---
Intake Visit Reasons: post op per Accompanied by: Self / Same As Patient Allergies No Known Allergies Allergy (Unknown, Verified 12/27/24 11:34) UNKNOWN HPI Comments Details: The patient is presenting post hysteroscopy D&C no complaints minimal vaginal bleeding no feverishness chills or abdominal pain. The pathology showed the following: A. Endometrium, polypectomy: Fragments of endometrial polyp with focal glandular crowding. B. Endometrium, curettage: - Endometrial intraepithelial neoplasia. - Background disordered proliferative endometrium. - Few fragments of endocervical tissue within normal limits. The patient is not interested in future fertility [facility] Medical History Anemia Lipoma Lump in neck Surgical History History of excision of mass Family History Mother COPD (chronic obstructive pulmonary disease) Ovarian cancer Maternal Grandmother Breast cancer Sister Seizure Sister MSG (monosodium glutamate) intolerance Son No problems noted. Son No problems noted. Son No problems noted. 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 [employer] Current occupational exposures/hazards: No Sexual orientation: Straight/Heterosexual Cognitive needs: No Hearing needs: No Vision needs: No Female Reproductive History Menstrual Age of Menarche: 13 Review of Systems Const All systems reviewed & are unremarkable except as noted in HPI and below Reports as per HPI and Reports no additional complaints GI Reports no additional complaints Reports no additional complaints Assessment & Plan Assessment & Plan (1) Endometrial intraepithelial neoplasia (EIN): Comment: November 2024 Code(s): N85.02 - Endometrial intraepithelial neoplasia [EIN] Category: Medical Plan: Discussed with the patient the pathology of endometrial biopsy showing endometrial intraepithelial neoplasia Discussed with the patient the following: -If untreated the risk of progression of EIN to endometrial carcinoma is 83 percent, -Coexistent endometrial carcinoma may be present in up to 40 percent of patients with EH with atypia -Given the high risk of concurrent, or progression to, endometrial carcinoma, for most postmenopausal patients and premenopausal patients who have completed childbearing, hysterectomy for treatment of EIN is the preferred treatment. -Other options of treatment discussed with the patient include Progestin therapy The patient is interested in hysterectomy, refer to marketing sales consultant Oncology for management Appointment scheduled at [facility] marketing sales consultant Oncology with Dr. Mojica on 01/02/2025 at 09:00 the patient is aware Orders: Referrals Gynecologic Oncology Referral N85.02 - Endometrial intraepithelial neoplasia [EIN] Coding Level of Care Code Est Pt Level 3 (04941) Diagnoses Endometrial intraepithelial neoplasia (EIN) N85.02
== END 2024-12-27 12:22 | disposition home or self-care (01) ==
LOC: HO.HWS 11:32
PROVIDERS: PCP Internal Medicine; Visit Provider Obstetrics & Gynecology
DX: N85.02 Endometrial intraepithelial neoplasia [EIN] (principal)
CPT/HCPCS: 99213

== ENCOUNTER → 2024-12-27 11:32 | Outpatient (BNVA) | payer OTHER, SELFPAY | PROVIDERS: PCP Internal Medicine; Visit Provider Obstetrics & Gynecology | DX: N85.02 Endometrial intraepithelial neoplasia [EIN] (principal) | CPT/HCPCS: 99212 ==

== ENCOUNTER 2025-02-07 12:50 | Outpatient (AMB) | payer OTHER, SELFPAY ==
[2025-02-07 13:26] VITALS: BP 126/68; PULSE 88; TEMP 36.3; O2SAT 99; BMI 37.8
--- NOTE | 2025-02-07 13:26 | A.OFFPC_ITS ---
Vital Signs 02/07/25 13:26 Height 5 ft 4 in Weight 220 lb 2 oz BMI 37.8 BP 126/68 Blood Pressure Location Lt brachial Position Sitting Pulse 88 Pulse Source Pulse Oximeter Temp 97.3 F Temp Source Temporal Artery Scan Pulse Oximetry (%) 99 Oxygen Delivery Method Room Air Intake Visit Reasons: ANNUAL- PHQ-9 needed. Accompanied by: Significant Other Allergies No Known Allergies Allergy (Unknown, Verified 02/07/25 13:36) UNKNOWN Medication List - Last Reconciled 02/07/25 by Shanell Shirley MD acetaminophen 650 mg PO Q6H PRN estradiol (Minivelle) 1 patch topical 2XW ibuprofen 600 mg PO Q6H PRN sennosides (senna) 17.2 mg PO BEDTIME PRN Tobacco use date assessed: 02/07/25 Dental Screening Dental Screen Date: 02/07/25 Did you have a dental visit in the last 12 months?: Yes Did you have a dental problem in the last 6 months where you did not have access to dental care?: No Was dental information given to patient?: Patient has dentist HPI ANNUAL- PHQ-9 needed. HPI Details 39-year-old obese female with iron defic iency anemia with menorrhagia endometrial intraepithelial neoplasia being followed up by gynecology coming in for physical exam last seen in January 2024. Patient is here for physical exam review of the notes patient follows up with Gynecology seen in December o ptions of hormonal management versus hysterectomy and has opted for hysterectomy. Patient had blood work in August with normal blood count. January 2024 blood work showing normal electrolytes normal renal function blood sugar normal liver function normal cholesterol with low vitamin D normal vitamin B12 and normal thyroid. [facility]AHBSO 01/25/2025 Dr. Mojica. hx of syncope [facility] Medical History (Updated 02/07/25 @ 14:14 by Shanell Shirley MD) Anemia Lipoma Lump in neck Surgical History (Updated 02/07/25 @ 14:02 by Shanell Shirley MD) S/P DAVIS-BSO History of excision of mass Family History Mother COPD (chronic obstructive pulmonary disease) Ovarian cancer Maternal Grandmother Breast cancer Sister Seizure Sister MSG (monosodium glutamate) intolerance Son No problems noted. Son No problems noted. Son No problems noted. 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 1. Little interest or pleasure in doing things: not at all 2. Feeling down, depressed, or hopeless: not at all 3. Trouble falling or staying asleep, or sleeping too much: not at all 4. Feeling tired or having little energy: not at all 5. Poor appetite or overeating: not at all 6. Feeling bad about yourself - or that you are a failure or have let yourself or your family down: not at all 7. Trouble concentrating on things, such as reading the newspaper or watching television: not at all 8. Moving or speaking so slowly that other people could have noticed. Or the opposite - being so fidgety or restless that you have been moving around a lot m ore than usual: not at all 9. Thoughts that you would be better off or of hurting yourself in some way: not at all Total score: 0 Depression Screening Interpretation: Negative Depression Screening Done: Yes 40722 - PHQ-9 Billing: Yes Source: Developed by Drs. Devaughn Aguayo, Sully Moreira, Mariusz Schwab and colleagues, with an educational delia from [employer]. Thrive Questionnaire Date Thrive assessed: 02/07/25 I am a: Patient What is your living situation today?: I have a steady place to live Within the past 12 months, did the food you bought not last and you didn't have the money to get more?: Never true Within the past 12 months, did you worry whether your food would run out before you got money to buy more?: Never true Do you have trouble paying for medicines?: No Do you have trouble getting transportation to medical appointments?: No Do you have trouble paying your heating and electricity bill?: No Do you have trouble taking care of your child, family member or friend?: No Do you have trouble with day-to-day activities such as bathing, preparing meals, shopping, managing finances, etc.?: No Are you currently unemployed and looking for a job?: No Are you interested in more education?: No Please select the resources that you would like help with: None Currently or been in a relationship where the following occur: No concerns reported THRIVE Score: 0 AUDIT C Alcohol Use Questionnaire (AUDIT-C) 1. How often do you have a drink containing alcohol?: Never 3. How often do you have six or more drinks on one occasion?: Never Total Score: 0 GEMMA-7 AMB Questionnaire GEMMA-7 Date GEMMA - 7 assessed: 02/07/25 Feeling nervous, anxious, or on edge: 0 = Not at all Not being able to stop or control worryin = Not at all Worrying too much about different things: 0 = Not at all Trouble relaxin = Not at all Being so restless that it is hard to sit still: 0 = Not at all Becoming easily annoyed or irritable: 0 = Not at all Feeling afraid as if something awful might happen: 0 = Not at all Total GEMMA-7 score (0-4 normal; 5-9 mild; 10-14 moderate; 15-21 severe): 0 Source: Developed by Drs. Devaughn Aguayo, Sully Moreira, Mariusz Schwab and colleagues, with an educational delia from [employer]. GEMMA-7 Assessment Billing GEMMA-7 Assessment Tool: GEMMA-7 Assessment 76635 Review of Systems Const Denies poor appetite and Denies weakness Eyes Denies no additional complaints ENT Reports Normal hearing present, Denies dizziness, Denies nasal congestion, Denies tinnitus and Denies sore throat Card Denies chest pain, Denies syncope, Denies rapid heart rate and Denies dyspnea Resp Denies cough and Denies dyspnea GI Denies change in stool character, Reports constipation, Denies diarrhea, Denies nausea and Denies vomiting Denies urinary frequency, Denies difficulty voiding and Denies dysuria Neuro Reports Normal hearing present, Denies confusion, Denies dizziness, Denies syncope and Denies weakness Psych Denies confusion Physical exam (Primary Care) Vital Signs: Last Vital Signs Temp 97.3 F 02/07/25 13:26 Pulse 88 02/07/25 13:26 BP 126/68 02/07/25 13:26 Pulse Ox 99 02/07/25 13:26 Oxygen Delivery Method Room Air 02/07/25 13:26 BMI result Body Mass Index 37.8 Tobacco/Smoking Status: Tobacco use Status Tobacco use date assessed 02/07/25 02/07/25 13:30 Patient Tobacco Use Status Never used Tobacco 02/07/25 14:06 Tobacco use type Cigarette 02/07/25 14:06 e-Cigarette/Vaping Use Never Used 02/07/25 14:06 PHQ-9: PHQ-9 Score PHQ-9: Total score 0 02/07/25 14:00 Depression Screening Interpretation: Negative Thrive Assessment: Date of Thrive Assessment Date Thrive assessed 02/07/25 02/07/25 13:30 Currently or been in a relationship where the following occur: No concerns reported Const General: No confusion Orientation/consciousness: No confusion HENMT Head: Yes normocephalic Ears: external ears normal and TM's normal bilaterally Face and sinus: Yes normal facial exam Mouth: moist mucous membranes Throat: Yes tonsils normal Eyes Conjunctivae: conjunctivae normal Pupils: Equal, round and reactive pupils present and Pupil accommodation reflex normal Direct Ophthalmoscopy: normal light reflex Neck Neck: No lymphadenopathy Thyroid: Thyroid normal Chest Chest palpation & inspection: normal inspection of the chest Resp Effort & Inspection: normal respiratory effort and no audible wheezes Auscultation: clear to auscultation bilaterally, no crackles, no wheezes and lung sounds not diminished Cardio Rate: regular rate Rhythm: regular rhythm Peripheral pulses: radial pulses present and dorsalis pedis present GI Palpation (GI): no masses Auscultation: normal bowel sounds and normoactive bowel sounds Rectal Exam - Female: deferred Skin General skin exam: no rashes or lesions noted Rashes: no rashes Neuro General: No confusion Cranial nerves: Yes Equal, round and reactive pupils present and Yes Normal hearing present Cognition (Neuro): normal cognition Gait exam (Neuro): Normal gait present Motor exam (neuro): 5/5 motor strength present throughout Deep tendon reflexes (DTR's): Right brachioradialis reflex intensity grade: 2+, Left brachioradialis reflex intensity grade: 2+, Right patellar reflex intensity grade: 2+ and Left patellar reflex intensity grade: 2+ Extrem General: No edema Coding Level of Care Code Est Pt Prev Care 18-39y(89956) Diagnoses Annual physical exam Z00.00 Obesity (BMI 30-39.9) E66.9 Endometrial intraepithelial neoplasia (EIN) N85.02 S/P DAVIS-BSO Z90.710; Z90.722; Z90.79 Hirsutism L68.0 Additional Codes GEMMA-7 Assessment Billing - GEMMA-7 Assessment Tool: GEMMA-7 Assessment 82584 ([id number]) PHQ-9 - 91797 - PHQ-9 Billing: Yes ([id number]) Assessment & Plan Assessment & Plan (1) Annual physical exam: Code(s): Z00.00 - Encounter for general adult medical examination without abnormal findings Category: Medical Plan: Patient is advised to eat healthy, keep well hydrated, keep active and have adequate sleep. (2) Obesity (BMI 30-39.9): Code(s): E66.9 - Obesity, unspecified Category: Medical Plan: Diet and exercise (3) Endometrial intraepithelial neoplasia (EIN): Comment: November 2024 Code(s): N85.02 - Endometrial intraepithelial neoplasia [EIN] Category: Medical Plan: Patient has seen Gynecology and has a planned hysterectomy (4) S/P DAVIS-BSO: Comment: Dr. Herberth watkins Code(s): Z90.710 - Acquired absence of both cervix and uterus; Z90.722 - Acquired absence of ovaries, bilateral; Z90.79 - Acquired absence of other genital organ(s) Category: Surgical Plan: Patient is being followed up by gynecology and has been prescribed hormone replacement (5) Hirsutism: Code(s): L68.0 - Hirsutism Category: Medical Plan: Workup added. Orders: Orders US thyroid Today R22.1 - Localized swelling, mass and lump, neck Cortisol Random Today L68.0 - Hirsutism Complete Blood Count Auto Diff Today L68.0 - Hirsutism Thyroid Stimulating Hormone Today L68.0 - Hirsutism Vitamin B12 and Folate Today L68.0 - Hirsutism UA CC w/rflx Micro + Cult Today L68.0 - Hirsutism, R30.0 - Dysuria Ferritin Today L68.0 - Hirsutism IRON PROFILE Today L68.0 - Hirsutism 17 Hydroxyprogesterone Today L68.0 - Hirsutism HCG Quantitative Today L68.0 - Hirsutism Prolactin Today L68.0 - Hirsutism Follicle Stimulating Hormone Today L68.0 - Hirsutism Comprehensive Met. Panel Today L68.0 - Hirsutism Hemoglobin A1c Today L68.0 - Hirsutism Free T4 (Free Thyroxine) Today L68.0 - Hirsutism Vitamin D 25-OH Total Today L68.0 - Hirsutism Lipid Panel Today E78.00 - Pure hypercholesterolemia, unspecified, L68.0 - Hirsutism Reticulocyte Count Today L68.0 - Hirsutism Testosterone, Total Today L68.0 - Hirsutism
== END 2025-02-07 14:20 | disposition home or self-care (01) ==
LOC: HO.HMCH 12:51
PROVIDERS: PCP Internal Medicine; Visit Provider Internal Medicine
DX: Z00.00 Encounter for general adult medical examination without abnormal findings (principal); E66.9 Obesity, unspecified; Z68.37 Body mass index [BMI] 37.0-37.9, adult; N85.02 Endometrial intraepithelial neoplasia [EIN]; Z90.710 Acquired absence of both cervix and uterus; Z90.722 Acquired absence of ovaries, bilateral; Z90.79 Acquired absence of other genital organ(s); L68.0 Hirsutism

== ENCOUNTER → 2025-02-07 12:50 | Outpatient (BNVA) | payer OTHER, SELFPAY | PROVIDERS: PCP Internal Medicine; Visit Provider Internal Medicine | DX: Z00.00 Encounter for general adult medical examination without abnormal findings (principal); E66.9 Obesity, unspecified; Z68.37 Body mass index [BMI] 37.0-37.9, adult; N85.02 Endometrial intraepithelial neoplasia [EIN]; L68.0 Hirsutism; R22.1 Localized swelling, mass and lump, neck; Z90.710 Acquired absence of both cervix and uterus; Z90.722 Acquired absence of ovaries, bilateral; Z90.79 Acquired absence of other genital organ(s); Z13.31 Encounter for screening for depression; Z13.39 Encounter for screening examination for other mental health and behavioral disorders | CPT/HCPCS: 96127; 99395 ==

== ENCOUNTER 2025-02-08 09:01 | Outpatient (REF) | payer OTHER, SELFPAY ==
[2025-02-08 09:19] LABS: MANUAL DIFF FLAG NO
[2025-02-08 09:40] LABS: Hematocrit 35.5 % (37.0-47.0); Hemoglobin 12.1 g/dl (12.0-16.0); Imm Gran Abs Auto 0.16 X10*3/uL (0.00-0.03); Imm Gran Pct Auto 1.6 % (0.0-0.4); Lymphocytes Absolute Auto 1.7 X10*3/uL (1.2-4.9); Mean Corpuscular HGB Conc 34.1 g/dl (31.0-35.0); Mean Corpuscular Hemoglobin 27.8 pg (27.0-33.0); Mean Corpuscular Volume 81.4 fL (80.0-98.0); NRBC Abs Auto 0.000 X10*3/uL (0.0-0.012); NRBC Pct Auto 0.0 /100WBC (0.0-0.2); Platelet Count 361 X10*3/uL (160-400); Red Blood Count 4.36 X10*6/uL (4.20-5.50); Reticulocytes Absolute 0.055 X10*6/uL (0.026-0.095); White Blood Count 9.7 X10*3/uL (4.8-10.8)
[2025-02-08 10:18] LABS: Alanine Aminotransferase 14 U/L (0-31); Albumin Level 4.0 g/dL (3.5-5.0); Alkaline Phosphatase 108 U/L (39-117); Anion Gap 13 (12-20); Aspartate Amino Transferase 22 U/L (5-31); Blood Urea Nitrogen 13 mg/dL (9-16); Calcium 9.1 mg/dL (8.4-10.2); Carbon Dioxide 24 mmol/L (22-29); Chloride 107 mmol/L (96-108); Cholesterol 155 mg/dL (<200); Estimated Glomerular Filt Rate > 60; HDL Cholesterol 34 mg/dL (>40); Iron 49 mcg/dL (30-160); Percent Iron Saturation 18 % (15-50); Potassium 4.2 mmol/L (3.3-5.1); Sodium 140 mmol/L (135-145); Total Iron Binding Capacity 268 mcg/dL (228-428); Total Protein 7.5 g/dL (6.5-8.0); Triglycerides 74 mg/dL (<150); Unsaturated Iron Binding 219 ug/dL
[2025-02-08 10:23] LABS: Hemoglobin A1C 116.8887 umol/L; Total Hemoglobin (HGBA1C) 3470.7907 umol/L
[2025-02-08 10:43] LABS: Folate 8.3 ng/mL (> or = 4.0); Vitamin B12 414 pg/mL (200-900)
[2025-02-08 10:49] LABS: Ferritin 110 ng/mL (10-122); Free T4 (Free Thyroxine) 1.09 ng/dL (0.71-1.85); Thyroid Stimulating Hormone 0.98 uIU/mL (0.32-4.0)
[2025-02-09 12:29] LABS: Follicle Stimulating Hormone 20.5 mIU/mL
== END 2025-02-08 09:02 | disposition home or self-care (01) ==
LOC: HO.LAB 09:01
PROVIDERS: PCP Internal Medicine; Visit Provider Internal Medicine
DX: L68.0 Hirsutism (principal); E78.00 Pure hypercholesterolemia, unspecified
CPT/HCPCS: 36415; 80053; 80061; 82306; 82533; 82607; 82728; 82746; 83001; 83036; 83498; 83540; 84146; 84403; 84439; 84443; 84702; 85025; 85045

== ENCOUNTER 2025-04-18 07:28 | Outpatient (REF) | payer OTHER, SELFPAY ==
--- OUTSIDE RECORDS SUMMARY | 2025-04-17 23:59 | XMS_ITS | Continuity of Care Document ---
Author Organization [facility] CLINICAL SYSTEMS EDUCATOR Oncolog y Address [address] [place] [address]- Care Team Providers Care Pain Management Nurse Name Role Phone Name Lucas HOWARD Primary Care Physician [phone] Encounter [facility] [place](s): 03/18/25 - 04/17/25 [facility] CLINICAL SYSTEMS EDUCATOR Oncology [address] [place] [id number]- Attending Physician: Tariq Terrell Admitting Physician: Tariq Terrell Referring Physician: Tariq Terrell Encounter Type: Triage Allergies, Adverse Reactions, Alerts No Known Allergies Medications Vivelle-Dot 0.075 mg/24 hours twice weekly transdermal film, extended release 1 patch = 0.075 mg, Topically, Every Tuesday and , # 9 patch, 3 Refills, Maintenance, 01/25/25 11:21:00 AM EDT, [id number], Partial fill upon patient request if the prescription is for a schedule II opioid drug., 165, cm, 01/25/25 10:07:00 EDT, Height, 104.1, kg, 01/25/25 10:07:00 EDT, Dry Weight Start Date: 01/25/25 Status: Ordered Medication Dispense Status: Completed Quantity: 9.0 Unit: patch Total Allowed Fills: 4 Fills Dispensed: 0 Vivelle-Dot 0.1 mg/24 hours twice weekly transdermal film, extended release 1 patch = 0.1 mg, Topically, Every Tuesday and , # 24 patch, 3 Refills, Maintenance, 03/18/25 8:14:00 AM EDT, [id number], Partial fill upon patient request if the prescription is for aschedule II opioid drug., 165, cm, 03/18/25 7:54:00 EDT, Height, 105.6, kg, 03/18/25 7:54:00 EDT, Dry Weight Start Date: 03/18/25 Stop Date: 02/17/26 Status: Ordered Medication Dispense Status: Completed Quantity: 24.0 Unit: patch Total Allowed Fills: 4 Fills Dispensed: 0 Problem List Condition Confirmation Course Effective Dates Status H ealth Status Informant Anemia Confirmed Active EIN (endometrial intraepithelial neoplasia) Confirmed Active Lipoma Confirmed Active Vasomotor symptoms due to menopause Confirmed Active Obese class II Confirmed Active Follow-up examination after gynecological surgery Confirmed Active Social History Social History Type Response Sexual Sexually involved in last 6 months: Yes. Smoking Status Never (less than 100 in lifetime) entered on: 01/02/25 Sex Sex Representation Female (finding) Patient Care team information Care Team Personnel Name: Name Lucas HOWARD Position: [facility] Outreach Member Role: PCP Address: [address] [place] [address] Telecom: Care Team Related Persons Name: CRUZITO ARTEAGA Name: ANNA DUVALL Name: FABIEN DALY Name: DARIO MUÑOZ Insurance Providers Guarantor name: JAYE Health Plan Information #: 1 Payer: [employer] Payer Identifier: JAYE Member Number: [id number] Group Number: [id number] Subscriber Identifier: JAYE Relationship to Subscriber: self Coverage Type: NA Coverage Verification Date: JAEY Telecom: JAYE Address:
--- NOTE | ~2025-04-18 | MM_ITS ---
EXAMINATION: MM SCREENING DIGITAL BREAST TOMOSYNTHESIS, BILATERAL CLINICAL INFORMATION: Screening. Asymptomatic. COMPARISON: None. This is a baseline study. TECHNIQUE: Digital breast tomosynthesis is performed in mediolateral oblique and craniocaudal views along with computer-aided detection (CAD). Synthesized 2D images are generated from the tomosynthesis. FINDINGS: BREAST COMPOSITION: There are scattered areas of fibroglandular density. BILATERAL BREASTS: No significant masses, suspicious calcifications or other abnormalities are seen in either breast. MM/MM tomosynthesis screening BI IMPRESSION: BILATERAL BREASTS: Negative, no mammographic evidence of malignancy. Normal interval follow-up is recommended in 12 months. ASSESSMENT: BI-RADS: Category 1: Negative RECOMMENDATION: Routine annual mammography screening. FOLLOW-UP: 1 year F/U This examination should not preclude the clinical evaluation of a suspicious palpable abnormality. This patient's information was entered into a reminder system with a target due date for their next mammogram. Electronically signed by: Anahy Romero MD 04/21/2025 05:34 PM [facility]
== END 2025-04-18 07:29 | disposition home or self-care (01) ==
LOC: HO.MAMMO 07:28
PROVIDERS: PCP Internal Medicine; Visit Provider Obstetrics & Gynecology
DX: Z12.31 Encounter for screening mammogram for malignant neoplasm of breast (principal)
CPT/HCPCS: 77063; 77067

== ENCOUNTER → 2025-04-18 07:45 | Outpatient (BNV) | payer OTHER, SELFPAY | PROVIDERS: PCP Internal Medicine; Visit Provider Radiology Body Imaging | DX: Z12.31 Encounter for screening mammogram for malignant neoplasm of breast (principal) | CPT/HCPCS: 77063; 77067 ==

== ENCOUNTER 2025-04-29 15:28 | Outpatient (REF) | payer OTHER, SELFPAY ==
--- NOTE | ~2025-04-29 | US_ITS ---
EXAMINATION: US THYROID CLINICAL INFORMATION: Localized swelling, mass and lump, neck. Palpable mass. COMPARISON: None relevant. TECHNIQUE: Linear transducer grayscale and color Doppler examination with attention to the region of the thyroid. FINDINGS: SIZE: Measurements of the thyroid lobes and nodules are given in sagittal, anteroposterior and transverse dimensions respectively. Right Thyroid Lobe: 4.3 x 1.6 x 1.1 cm, volume 3.8 mL. Parenchyma: The gland echotexture is homogeneous. Thyroid vascularity is normal. Left Thyroid Lobe: 3.8 x 1.6 x 1.3 cm, volume 4.1 mL. Parenchyma: The gland echotexture is homogeneous. Thyroid vascularity is normal. Isthmus: 0.5 cm in maximum AP dimension. Just left of midline, inferior to the left thyroid isthmus is a heterogeneous mass measuring 4.0 x 2.4 x 4.0 cm, with both cystic with nodular soft tissue components, and internal color Doppler signal. This appears to likely arise from the inferior thyroid. This would correspond with a TR category 4 or 5 nodule. NODES: No lymphadenopathy is seen in the tissue surrounding the thyroid gland. US/US thyroid IMPRESSION: 1. There is a 4.0 x 2.4 x 4.0 cm mixed cystic and solid mass appearing to arise from the inferior left thyroid isthmus. This would correspond with a TR category 4 or 5 nodule, and FNA is advised. Given the size of the nodule, CT of the neck with contrast could also be considered to further characterize this abnormality. 2. The thyroid is otherwise normal. ACR TI-RADS RECOMMENDATION REFERENCE: Ultrasound-guided fine-needle aspiration, followup ultrasound, no further follow up. * TR1 (0 point) and TR2 (2 points): No FNA or follow up. * TR3 (3 points): FNA if more than or equal to 2.5 cm in maximum dimension, followup ultrasound in 1, 3 and 5 years if 1.5 to 2.4 cm in maximum dimension. * TR4 (4-6 points): FNA if more than or equal to 1.5 cm in maximum dimension, followup ultrasound in 1, 2, 3 and 5 years if 1 to 1.4 cm in maximum dimension. * TR5 (more than or equal to 7 points): FNA if more than or equal to 1 cm in maximum dimension, followup ultrasound every year for 5 years if 0.5 to 0.9 cm in maximum dimension. * TR3, TR4 or TR5 nodules that are below the size threshold for followup receive no follow up. Electronically signed by: Erich Waller MD 04/29/2025 05:00 PM [facility]
== END 2025-04-29 15:29 | disposition home or self-care (01) ==
LOC: HO.US 15:28
PROVIDERS: PCP Internal Medicine; Visit Provider Internal Medicine
DX: R22.1 Localized swelling, mass and lump, neck (principal)
CPT/HCPCS: 76536

== ENCOUNTER → 2025-04-29 15:29 | Outpatient (BNV) | payer OTHER, SELFPAY | PROVIDERS: PCP Internal Medicine; Visit Provider Radiology Diagnostic Radiology | DX: R22.1 Localized swelling, mass and lump, neck (principal) | CPT/HCPCS: 76536 ==